=== PATIENT | male | born 1955 | race Caucasian/White ===

== ENCOUNTER 2019-10-15 08:19 | Day surgery (SDC) | payer MEDICARE, OTHER ==
[2019-10-12 14:54] VITALS: BMI 21.9
[~2019-10-15 08:19] MED LIST: ACETAMINOPHEN TAB 500 MG TAB PO ONE; BACITRACIN 500 UNIT/GM OINT 28.4 GM TUBE TOPICAL ONE; DEXAMETHASONE SOD PHOSPHATE 10 MG/ML 1 ML VIAL IV ONE; DEXAMETHASONE SOD PHOSPHATE 4 MG/ML 1 ML VIAL IV ONE; EPINEPHrine 1 MG/ML (MDV) 30 ML VIAL IRRIGATION ONE; FAMOTIDINE 20 MG/2 ML VIAL IV ONE; FLUORESCEIN STRIPS 1 MG STRIP MISCELLANE ONE; LACTATED RINGERS 1,000 ML IV SCH; LIDOCAINE 1% 20 ML VIAL (10MG/ML) FOR IV START INTRADERMA PRN; LIDOCAINE 1%-EPI 1:100,000 20 ML VIAL SQ ONE; MELOXICAM 7.5 MG TAB PO ONE; ONDANSETRON 4 MG/2 ML VIAL IVP ONE
[2019-10-15] MEDS: OXYMETAZOLINE 0.05% NASL SPRAY 1 SPRAY BOTTLE NASAL ONE ×4 (09:17→09:40)
[2019-10-15] MEDS: ONDANSETRON 4 MG/2 ML VIAL IVP ONE ×2 (09:34→11:58)
[2019-10-15] MEDS ORDERED: MIDAZOLAM 2 MG/2 ML VIAL ONE (10:24)
[2019-10-15] MEDS ORDERED: PHENYLEPHRINE-0.9% NACL SYG 1 MG/10 ML SYRINGE ONE (10:24)
[2019-10-15] MEDS ORDERED: PROPOFOL 10 MG/ML 20 ML VIAL IV ONE (10:24)
[2019-10-15] MEDS ORDERED: fentaNYL (PF) 50 MCG/ML 2 ML AMP ONE (10:24)
[2019-10-15] MEDS ORDERED: SUCCINYLCHOLINE CHLORIDE 100 MG/5 ML SYR IV ONE (10:24)
[2019-10-15] MEDS ORDERED: LIDOCAINE 1% INJ 10MG/ML (20 ML MDV) ONE (10:24)
[2019-10-15] MEDS ORDERED: EPINEPHrine 1 MG/ML (MDV) 30 ML VIAL IRRIGATION ONE (10:46)
[2019-10-15] MEDS ORDERED: FLUORESCEIN STRIPS 1 MG STRIP MISCELLANE ONE (10:46)
[2019-10-15] MEDS ORDERED: LIDOCAINE 1%-EPI 1:100,000 20 ML VIAL SQ ONE (10:46)
[2019-10-15] MEDS ORDERED: BUPIVACAINE (PF) 0.25% 30 ML VIAL SQ ONE (10:46)
[2019-10-15 11:42] VITALS: TEMP 97.1
--- NOTE | 2019-10-15 11:45 | P.OP ---
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 sinuses Deviated nasal septum Bilateral hypertrophy of the inferior nasal turbinates Lysis of intranasal synechiae Postoperative Diagnosis: Same Procedure(s) Performed: Bilateral functional endoscopic sinus surgery with polypectomy and placement of propel Septoplasty Bilateral submucosal resection of the inferior nasal turbinates with outfracturing compression Anesthesia: STEVIE Surgeon: Ketan Bourgeois Estimated Blood Loss (ml): 20 Pathology: other (Sinonasal) Condition: stable Disposition: PACU Indications for Procedure: This patient is a 64-year-old white male who presented to the office with recurrent polyposis and chronic sinusitis. CAT scan evaluation shows blockage of the frontal ethmoid and maxillary sinuses from polyps. Patient also had polyps in the maxillary sinuses ethmoid sinuses and frontal sinuses. It appeared that the sphenoid sinuses were spared. Patient had previous nasal surgery by Dr. Bynum and ALLERGY shots by Dr. Foley. The patient had his middle turbinate removed and unfortunately has developed significant polyposis with blockage and obstruction. The patient has failed medical therapy and has been on antibiotics and antihistamines Flonase nasal spray and [id number] medications with no improvement. He has clear blockage of the sinuses with his nasal polyps and we need to clear his obstruction for better sinus function. He also noticed anosmia. Operative Findings: Patient had widespread sinonasal disease with polyposis and blockage bilaterally with absent middle turbinates deviated septum and large obstructive inferior turbinates. Diseased tissue was seen throughout the frontal ethmoid and maxillary sinuses. The sphenoid sinuses appear to be spared. Description of Procedure: This patient was taken to the operative room and placed in the supine position. A general inhalation anesthetic was administered to the patient by the department of anesthesia with a functioning IV line in place. The patient was monitored throughout the entire case by the department of anesthesia. The eyes were taped shut for protection. The patient was placed in a slight reverse Trendelenburg position. The patient had previously utilize Afrin nasal spray preoperatively. The nose was evaluated and the septum lateral nasal wall and inferior turbinates were injected with lidocaine 1% with epinephrine 1 100,000 bilaterally. Approximately 10 minutes were allowed wait for full vasoconstrictive effects to take place. At this point a caudal incision was made over the caudal portion of the left septum down to the mucoperichondrium. A mucoperichondrial flap was elevated on the left side and dissection was carried with use of tunnels posteriorly. We then made a crossover incision through the cartilage to the contralateral side and for the mucoperichondrial flap development was performed to the extent of visualization on the contralateral side. After the cartilage was freed with use of several crosshatching incisions and removal of some redundant strips of septal cartilage, the septum was straightened and placed back in the midline. The septum was sutured fixated to the ovarian groove. Excellent straightening occurred and the septum was visibly straight. Incision was closed with a 40 rapid Vicryl. We utilized a running nonlocking fashion for closure of the incision. A quilting stitch was used to reapproximate the septal flaps with use of a 40 rapid Vicryl. We then entered the nose with a 0 and 30 Ramirez an endoscope. Previous to this we did inject the lateral nasal wall and middle turbinate and uncinate process with lidocaine 1% with epinephrine 1 100,000. Approximately 10 minutes were allowed wait for full vasoconstrictive effects to take place. With use of a microdebrider and a pediatric backbiter, we took down the uncinate process bilaterally. The bilateral middle turbinates were absent from previous surgery. Intranasally there are bilateral polyps which were removed with a microdebrider. The patient had large amount of synechiae throughout the ethmoid maxillary and frontal sinuses. We took down all the synechiae from his previous surgery. There was polyps noted throughout all sinuses other than the sphenoid. We then opened the maxillary sinuses bilaterally. We utilized a microdebrider for this and entered the maxillary sinuses and removed diseased tissue. This was done bilaterally. After the maxillary sinuses were opened and the diseased tissue was removed we entered the ethmoid bulla and with use of a microdebrider and up-biting Melvina, we followed the fovea frontalis through the basal lamella and into the posterior ethmoid air cells and did a total ethmoi dectomy. We removed the anterior ethmoid air cells with use of a microdebrider and up-biting boss. After all the anterior ethmoid air cells were removed we did the same in the posterior ethmoid. A total ethmoidectomy was completed in that fashion with removal of all the anterior and posterior ethmoid air cells and diseased tissue. We open the frontal sinuses and removed sinus tissue that was diseased. We did utilized the balloon for some opening but we had to remove diseased tissue and polyps from the opening and diseased tissue from this frontal sinuses bilaterally with use of endoscope. We explored the frontal sinuses bilaterally. To summarize all sinuses were open all sinuses were explored and we remove diseased tissue from the sphenoid maxillary and frontal sinuses. Ethmoid sinuses were opened totally. Xerogel was inserted and minimal bleeding was encountered. We reinspected the skull base there is no signs of any orbital penetration or signs of any intracranial penetration. Bilateral propel many and propel's were placed. The sugical site was reinspected after the xerogel was placed and no bleeding was seen. I did place 2 Merocel sponge packs bilaterally which will be removed this evening or tomorrow morning Attention was then paid to the inferior turbinates. The bilateral inferior turbinates were hypertrophic and obstructive. We entered the anterior portion of the inferior turbinates with use of a microdebrider. We remove bone and submucosal elements with use of a microdebrider bilaterally. The inferior turbinates underwent a submucosal resection with removal of submucosal tissue and bone. We obtained a much better and normal in size for breathing. The inferior turbinates were then outfractured and compressed with a Boyes nasal elevator. Excellent airway was obtained and was symmetric bilaterally. No bleeding was encountered.
[2019-10-15 11:49] VITALS: RESP 16
[2019-10-15] MEDS: HYDROmorphone 0.5 MG/0.5 ML SYRINGE IVP PRN ×2 (11:58→12:06)
[2019-10-15] MEDS ORDERED: hydrALAZINE HCL 20 MG/ML 1 ML VIAL IVP ONE (12:06)
[2019-10-15] MEDS ORDERED: amLODIPine 10 MG TAB PO STA (12:16)
[2019-10-15] MEDS ORDERED: MORPHINE SULFATE 4 MG/ML SYRINGE IVP ONE (12:33)
[2019-10-15 13:48] VITALS: BP 144/77; PULSE 72
== END 2019-10-15 13:49 | disposition home or self-care (01) ==
LOC: OR 08:19
PROVIDERS: ATTEND Otolaryngology
DX: J32.4 Chronic pansinusitis (principal); J34.2 Deviated nasal septum; J34.3 Hypertrophy of nasal turbinates; J33.9 Nasal polyp, unspecified; J34.89 Other specified disorders of nose and nasal sinuses; K21.9 Gastro-esophageal reflux disease without esophagitis; Z87.891 Personal history of nicotine dependence; Z80.3 Family history of malignant neoplasm of breast; I10 Essential (primary) hypertension; N40.0 Benign prostatic hyperplasia without lower urinary tract symptoms; Z79.52 Long term (current) use of systemic steroids; Z79.899 Other long term (current) drug therapy; Z91.010 Allergy to peanuts; Z91.013 Allergy to seafood; Z91.048 Other nonmedicinal substance allergy status
CPT/HCPCS: 30520; 31267; 31253; 30140; 88305; 84132; C2625 ×2; C1726; J0171; J2250; J2270; J0360; J2405; J0690; J2001; J3010; J2370; J0330; J2704; J1170; 93005

== ENCOUNTER → 2020-03-29 | Outpatient (CLI) | payer OTHER | END | disposition home or self-care (01) | LOC: LABWHC1 10:26 | PROVIDERS: ATTEND Family Medicine | DX: Z03.818 Encounter for observation for suspected exposure to other biological agents ruled out (principal) | CPT/HCPCS: U0003; C9803 ==

== ENCOUNTER 2020-05-26 10:38 | Day surgery (SDC) | payer OTHER, MEDICARE ==
[2020-05-25 13:22] VITALS: BMI 21.9
[~2020-05-26 10:38] MED LIST changes: -ACETAMINOPHEN TAB 500 MG TAB PO ONE; -BACITRACIN 500 UNIT/GM OINT 28.4 GM TUBE TOPICAL ONE; -DEXAMETHASONE SOD PHOSPHATE 10 MG/ML 1 ML VIAL IV ONE; -DEXAMETHASONE SOD PHOSPHATE 4 MG/ML 1 ML VIAL IV ONE; -EPINEPHrine 1 MG/ML (MDV) 30 ML VIAL IRRIGATION ONE; -FAMOTIDINE 20 MG/2 ML VIAL IV ONE; -FLUORESCEIN STRIPS 1 MG STRIP MISCELLANE ONE; +LIDOCAINE 1% (10MG/ML) FOR IV START INTRADERMA PRN; -LIDOCAINE 1% 20 ML VIAL (10MG/ML) FOR IV START INTRADERMA PRN; -LIDOCAINE 1%-EPI 1:100,000 20 ML VIAL SQ ONE; -MELOXICAM 7.5 MG TAB PO ONE; -ONDANSETRON 4 MG/2 ML VIAL IVP ONE
[2020-05-26 10:55] VITALS: TEMP 98
[2020-05-26] MEDS ORDERED: PROPOFOL 10 MG/ML 20 ML VIAL IV ONE (12:24)
[2020-05-26] MEDS ORDERED: LIDOCAINE 1% INJ 10MG/ML (20 ML MDV) ONE (12:24)
[2020-05-26] MEDS ORDERED: LACTATED RINGERS 1,000 ML IV ONE (12:25)
--- NOTE | 2020-05-26 12:52 | P.PCN ---
Date of Procedure: 05/26/20 Description of Procedure: BRIEF HISTORY: Patient is a 64-year-old male presenting for outpatient colonoscopy for screening for malignant neoplasm of the colon. The patient reports a prior history of chronic. Diverticulitis with perforation requiring partial colon resection. He reports a history of colon polyps in the past. He believes his last colonoscopy was 5 years ago. PROCEDURE PERFORMED: Colonoscopy with polypectomy. PREOPERATIVE DIAGNOSIS: Screening for malignant neoplasm of the colon, patient reports last colonoscopy 5 years ago, patient reports personal history of colon polyps. ESTIMATED BLOOD LOSS: Minimal. IV sedation per Anesthesia. PROCEDURE: After informed consent was obtained, the patient, was brought into the endoscopy unit. IV sedation was administered by Anesthesia under continuous monitoring. Digital rectal examination was normal. Initially the Olympus CF-190 flexible video colonoscope was then inserted in the rectum, gradually advanced into the cecum without any difficulty. Careful examination was performed as the scope was gradually being withdrawn. Ileocecal valve and the appendiceal orifice were visualized and appeared normal. Prep was excellent. Mucosa of the cecum, ascending colon, transverse colon, descending colon, and rectum appeared normal. Evidence of prior partial colectomy/sigmoidectomy. Patient had numerous small and large diverticula throughout the colon. 2 diminutive polyps removed with cold forcep polypectomy measuring 2 mm in size from the cecum. Retroflexion was performed in the rectum and no lesions were seen, low-grade hemorrhoids. The patient tolerated the procedure well. IMPRESSION: 2 diminutive cecal polyps removed with cold forcep polypectomy. Moderate pandiverticulosis. Prior partial colectomy with normal anastomotic site. RECOMMENDATIONS: Findings of this examination were discussed with the patient in his . Okay to resume diet. Okay to resume medications. Await pathology from polypectomy. Would recommend repeat colonoscopy in 7 years for colon polyps.
[2020-05-26 12:55] VITALS: PULSE 59
[2020-05-26 13:10] VITALS: BP 131/78; RESP 20
== END 2020-05-26 13:38 | disposition home or self-care (01) ==
LOC: ORWHC2ENDO 10:38
PROVIDERS: ATTEND Internal Medicine
DX: Z12.11 Encounter for screening for malignant neoplasm of colon (principal); D12.0 Benign neoplasm of cecum; K57.30 Diverticulosis of large intestine without perforation or abscess without bleeding; Z86.010 Personal history of colon polyps; I10 Essential (primary) hypertension; N40.0 Benign prostatic hyperplasia without lower urinary tract symptoms; Z79.899 Other long term (current) drug therapy; Z87.891 Personal history of nicotine dependence; Z90.49 Acquired absence of other specified parts of digestive tract; Z98.890 Other specified postprocedural states
CPT/HCPCS: 88305; 45380; J2001; J2704

== ENCOUNTER → 2020-09-13 | Outpatient (CLI) | payer OTHER, MEDICARE | END | disposition home or self-care (01) | LOC: LABWHC1 09:15 | PROVIDERS: ATTEND Family Medicine | DX: Z20.828 Contact with and (suspected) exposure to other viral communicable diseases (principal) | CPT/HCPCS: U0003; C9803 ==

== ENCOUNTER → 2020-12-26 | Outpatient (CLI) | payer OTHER, MEDICARE ==
[2020-12-26 09:03] LABS: African American GFR (CKD) >90 (>60 ml/min/1.73 sqM); Blood Urea Nitrogen 17 mg/dL (9-20); Non-African American GFR(CKD) 83 (>60 ml/min/1.73 sqM)
--- NOTE | 2020-12-26 10:45 | CT ---
EXAMINATION TYPE: CT urogram wo/w con DATE OF EXAM: 12/26/2020 COMPARISON: None HISTORY: 65-year-old male Hematuria, abnormal urine cytology TECHNIQUE: Contiguous axial scanning of the abdomen and pelvis performed without and with IV Contrast , patient injected with 100 ml mL of Isovue 300. Delayed images through the kidneys and bladder were obtained. Coronal/sagittal reconstructions performed. 3-D reconstructions generated on a dedicated in dependent workstation. CT DLP: 2588 mGycm Automated exposure control for dose reduction was used. FINDINGS: Heart normal size without pericardial effusion. Mild dependent atelectasis in the visualized lower renuka ngs. Small hiatal hernia. No focal liver lesion or biliary ductal dilatation. Portal venous system is patent. Gallbladder, adrenal glands, spleen, and pancreas within normal limits. Kidney show no hydronephrosis. Symmetric uptake and excretion of contrast from both kidneys. There is an ovoid 2.5 cm cortical lesion medial mid pole left kidney with density characteristics is compatible with a benign cyst. No suspicious renal lesion. No abnormal filling defects seen within the renal collecting system. No suspicious filling defect see n along the course of either ureter. No dilated small bowel, free fluid, or free air. No mesenteric or retroperitoneal lymphadenopathy. Normal appendix. Mild to moderate stool burden. Left hemicolonic diverticulosis, greatest in the prox imal to mid sigmoid colon. No pericolonic inflammatory change. Mild circumferential bladder wall thickening with some eccentric plaque like thickening along the lef t lateral bladder wall measuring 1.9 x 0.6 cm, referred to axial series 9 image 22. An adjacent 7 mm lymph node is present along the anterior left side of the pelvis. Marked prostatomegaly of 6.8 cm. Central prostatic calcifications. No abnormal fluid collection in th e pelvis are any additional pelvic lymphadenopathy seen. Bones: Mild degenerative change of the hips. Facet arthropathy lower lumbar spine. Trace grade 1 retr olisthesis L3-L4 and L4-L5. Moderate degenerative disc disease lower lumbar spine. IMPRESSION: 1. A BENIGN 2.5 CM LEFT RENAL CYST. NO SUSPICIOUS RENAL MASS. NO SUSPICIOUS FILLING DEFECTS WITHIN TH E RENAL COLLECTING SYSTEMS OR ALONG THE COURSE OF EITHER URETER. 2. CIRCUMFERENTIAL BLADDER WALL THICKENING LIKELY CHRONIC BLADDER WALL HYPERTROPHY FROM BLADDER OUTLE T OBSTRUCTION. THERE IS MARKED PROSTATOMEGALY OF 6.8 CM. CORRELATE WITH PSA VALUES AND PATIENT'S SYMP TOMS. 3. HOWEVER, THERE IS ECCENTRIC PLAQUE-LIKE THICKENING ALONG THE LEFT LATERAL BLADDER WALL MEASURING 1 .9 X 0.6 CM. DIRECT VISUALIZATION TO EXCLUDE UROTHELIAL LESION. 4. NONSPECIFIC ADJACENT 7 MM LYMPH NODE IN THE ANTERIOR LEFT SIDE OF THE PELVIS CAN BE REASSESSED AT FOLLOW-UP. 5. SMALL HIATAL HERNIA AND LEFT-SIDED COLONIC DIVERTICULOSIS.
== END | disposition home or self-care (01) ==
LOC: RADCTMAIN 08:18
PROVIDERS: ATTEND Urology
DX: N28.1 Cyst of kidney, acquired (principal); N40.0 Benign prostatic hyperplasia without lower urinary tract symptoms; K44.9 Diaphragmatic hernia without obstruction or gangrene; K57.30 Diverticulosis of large intestine without perforation or abscess without bleeding
CPT/HCPCS: 82565; 84520; 74178; 36415; 74400; Q9967

== ENCOUNTER → 2021-05-29 | Outpatient (CLI) | payer OTHER, MEDICARE ==
[2021-05-29 14:57] LABS: African American GFR (CKD) >90 (>60 ml/min/1.73 sqM); Blood Urea Nitrogen 16 mg/dL (9-20); Non-African American GFR(CKD) 89 (>60 ml/min/1.73 sqM)
--- NOTE | 2021-05-29 16:09 | CT ---
EXAMINATION TYPE: CT abdomen pelvis w con DATE OF EXAM: 05/29/2021 COMPARISON: CT urogram December 26, 2020 HISTORY: Localized enlarged lymph node CT DLP: 674.60 mGycm, Automated Exposure Control for Dose Reduction was Utilized. CONTRAST: CT scan of the abdomen and pelvis is performed without oral but with IV Contrast, patient injected wi th 100 ml mL of Isovue 300. FINDINGS: LUNG BASES: Mild posterior bibasilar linear atelectasis and/or scarring is redemonstrated. LIVER/GB: No significant abnormality is appreciated. PANCREAS: No significant abnormality is seen. SPLEEN: No significant abnormality is seen. ADRENALS: No significant abnormality is seen. KIDNEYS: Stable 2.7 cm thin-walled cyst medially in the left kidney midpole level image 32 series 5. BOWEL: Stable small sized hiatal hernia. No suspicious small or large bowel dilatation. Prominent div erticulosis left and sigmoid colon again seen PROSTATE/SEMINAL VESICLES: Enlarged prostate consistent with BPH redemonstrated. LYMPH NODES: There is a 8mm oval hyperdense lesion adjacent to bladder X image 69 unchanged from prio r possible prominent lymph node. No new greater than 1 cm lymph nodes clearly identified. OSSEOUS STRUCTURES: Slight grade 1 retrolisthesis L3 on L4. Mild disc space narrowing L4-L5 and L5-S1 levels. Facet Arthropathy lower lumbar spine. OTHER: Mild calcified plaque of the aorta and branch vessels. IMPRESSION: No obvious new mass or adenopathy. Stable is nonspecific 8 mm lesion adjacent to left bl adder possible prominent lymph node.
== END | disposition home or self-care (01) ==
LOC: RADCTMAIN 14:23
PROVIDERS: ATTEND Urology
DX: K44.9 Diaphragmatic hernia without obstruction or gangrene (principal); N40.0 Benign prostatic hyperplasia without lower urinary tract symptoms
CPT/HCPCS: 82565; 84520; 74177; 36415; Q9967

== ENCOUNTER 2021-08-16 21:28 | Inpatient (IN) | payer OTHER, MEDICARE ==
[2021-08-17] MEDS ORDERED: SODIUM CHLORIDE 0.9% 500 ML 500 ML IV STA (00:44)
[2021-08-17] MEDS ORDERED: ONDANSETRON 4 MG/2 ML VIAL IVP STA (00:44)
[2021-08-17] MEDS ORDERED: MORPHINE SULFATE 2 MG/ML SYRINGE IVP STA (00:44)
[2021-08-17 01:21] LABS: Basophils % (A) 0 %; Eosinophils % (A) 0 %; HCT 49.2 % (39.0-53.0); Lymphocytes # (A) 0.7 k/uL (1.0-4.8); Lymphocytes % (A) 6 %; MCHC 34.6 g/dL (31.0-37.0); MCV 95.2 fL (80.0-100.0); Mean Platelet Volume 7.2; Monocytes # (A) 0.4 k/uL (0-1.0); Monocytes % (A) 4 %; Neutrophils # (A) 9.9 k/uL (1.3-7.7); Neutrophils % (A) 88 %; Platelet Count 259 k/uL (150-450); RBC 5.17 m/uL (4.30-5.90); RDW 12.8 % (11.5-15.5); WBC 11.2 k/uL (3.8-10.6)
[2021-08-17 01:31] LABS: Chloride 104 mmol/L (98-107)
[2021-08-17 01:34] LABS: ALT 21 U/L (4-49); AST 27 U/L (17-59); African American GFR (CKD) >90 (>60 ml/min/1.73 sqM); Albumin 4.4 g/dL (3.5-5.0); Alkaline Phosphatase 55 U/L (38-126); Amylase 57 U/L (30-110); Anion Gap 8 mmol/L; Blood Urea Nitrogen 17 mg/dL (9-20); Calcium 9.6 mg/dL (8.4-10.2); Carbon Dioxide 26 mmol/L (22-30); Glucose 131 mg/dL (74-99); Lipase 84 U/L (23-300); Non-African American GFR(CKD) 89 (>60 ml/min/1.73 sqM); Potassium 4.1 mmol/L (3.5-5.1); Sodium 138 mmol/L (137-145); Total Bilirubin 0.8 mg/dL (0.2-1.3); Total Protein 7.9 g/dL (6.3-8.2)
--- NOTE | 2021-08-17 01:37 | ED ---
Abdominal Pain HPI - General Chief Complaint: Abdominal Pain Stated Complaint: Stomach Cramps Time Seen by Provider: 08/17/21 00:35 Source: patient, RN notes reviewed Mode of arrival: ambulatory Limitations: no limitations - History of Present Illness Initial Comments: Patient is a 65-year-old male with history of hypertension, presenting to emergency Department with complaints of right lower quadrant abdominal pain that been increasing throughout today. States he noticed it first about noon today after he ate. The pain has been steadily increasing, he currently rates the pain at 8/10. He states he does have history of diverticulitis with bowel resection. He had his last colonoscopy about a year and a half ago, no abnormal findings then. He denies any fevers or chills, no chest pain or shortness of breath. He does admit to some mild nausea, some loose stools this morning but no other diarrhea. Patient denies any other abdominal surgeries. Patient has no further complaints. His vital signs are stable upon arrival. - Related Data Home Medications Medication Instructions Recorded Confirmed Tamsulosin [Flomax] 0.4 mg PO DAILY 10/12/19 08/17/21 Ascorbic Acid [Vitamin C] 1,000 mg PO DAILY 08/17/21 08/17/21 L.acidoph,Paracasei, B.lactis 1 cap PO DAILY 08/17/21 08/17/21 [Probiotic] Losartan [Cozaar] 25 mg PO DAILY 08/17/21 08/17/21 Chester-3 Fatty Acids/Fish Oil [Fish 1 cap PO DAILY 08/17/21 08/17/21 Oil 1,000 mg Softgel] Allergies Allergy/AdvReac Type Severity Reaction Status Date / Time grass pollen Allergy Dyspnea Verified 08/17/21 07:24 mold Allergy Dyspnea Verified 08/17/21 07:24 peanut Allergy Dyspnea Verified 08/17/21 07:24 pollen extracts Allergy Dyspnea Verified 08/17/21 07:24 shellfish derived [Shellfish] Allergy Dyspnea Verified 08/17/21 07:24 dust Allergy Dyspnea Uncoded 08/17/21 07:24 Review of Systems ROS Statement: Those systems with pertinent positive or pertinent negative responses have been documented in the HPI. ROS Other: All systems not noted in ROS Statement are negative. Past Medical History Past Medical History: Hypertension, Prostate Disorder Additional Past Medical History / Comment(s): states nasal polyp, diverticulitis History of Any Multi-Drug Resistant Organisms: None Reported Past Surgical History: Bowel Resection Additional Past Surgical History / Comment(s): previous nasal polyps removed, Jaw sx with pin, colon resection d/t diverticulitis Past Anesthesia/Blood Transfusion Reactions: No Reported Reaction Past Psychological History: No Psychological Hx Reported Smoking Status: Former smoker Past Alcohol Use History: None Reported Past Drug Use History: None Reported - Past Family History Father Family Medical History: No Reported History Additional Family Medical History / Comment(s): Father lived to be 90yrs. Mother Family Medical History: Hypertension Additional Family Medical History / Comment(s): Mother lived to be 76yrs old. General Exam - General Exam Comments Initial Comments: GENERAL: Patient is well-developed and well-nourished. Patient is nontoxic and in no acute distress. HEAD: Atraumatic, normocephalic. EYES: Pupils equal round and reactive to light, extraocular movements intact, sclera anicteric, conjunctiva are normal. Eyelids were unremarkable. ENT: Moist mucous membranes. NECK: Normal range of motion, supple without lymphadenopathy or JVD. LUNGS: Unlabored respirations. Breath sounds clear to auscultation bilaterally and equal. No wheezes rales or rhonchi. HEART: Regular rate and rhythm without murmurs, rubs or gallops. ABDOMEN: Soft, tender to palpation of the right lower quadrant, right side of the abdomen, normoactive bowel sounds. No masses appreciated. : Deferred MUSCULOSKELETAL: Normal extremities with adequate strength and normal range of motion, no pitting or edema. No clubbing or cyanosis. NEUROLOGICAL: Patient is alert and oriented x 3. Symmetrical smile. Normal speech, normal gait. PSYCH: Normal mood, normal affect. SKIN: Warm, Dry, normal turgor, no rashes or lesions noted. Limitations: no limitations Course Vital Signs 08/16/21 08/17/21 08/17/21 22:22 01:25 03:14 Temperature 98.8 F Pulse Rate 74 76 79 Pulse Rate [ Pulse Oximetery ] Respiratory 18 20 20 Rate Blood Pressure 139/83 142/84 146/86 Blood Pressure [Right Arm] O2 Sat by Pulse 97 96 96 Oximetry 08/17/21 08/17/21 08/17/21 06:39 12:40 14:00 Temperature 98.0 F Pulse Rate 77 81 Pulse Rate [ 75 Pulse Oximetery ] Respiratory 18 18 18 Rate Blood Pressure 141/86 149/97 Blood Pressure 139/82 [Right Arm] O2 Sat by Pulse 98 97 96 Oximetry Medical Decision Making - Medical Decision Making Patient is a 65-year-old male with history of hypertension, presenting with right lower quadrant pain started earlier today. Steadily been increasing throughout today. Does have history of diverticulitis with bowel resection, no other abdominal surgeries. His vitals are stable. Labs are showing a slight white count 11.2, rest of labs are unremarkable, urine shows evidence of in fection. CT the abdomen and pelvis shows a mechanical small bowel obstruction with transition point in the anterior right mid abdomen. Patient was started on some fluids, given morphine and Zofran, has been resting comfortably. His vitals remained stable. Patient will be admitted for small bowel obstruction. Patient will be admitted under Dr. Marquez who is covering for Dr. Chicas, with surgery on consult. Case discussed with Dr. Rubin. - Lab Data Result diagrams: 08/17/21 00:47 08/17/21 00:47 Lab Results 08/17/21 08/17/21 08/17/21 Range/Units 00:47 00:47 00:47 WBC 11.2 H (3.8-10.6) k/uL RBC 5.17 (4.30-5.90) m/uL Hgb 17.0 (13.0-17.5) gm/dL Hct 49.2 (39.0-53.0) % MCV 95.2 (80.0-100.0) fL MCH 33.0 (25.0-35.0) pg MCHC 34.6 (31.0-37.0) g/dL RDW 12.8 (11.5-15.5) % Plt Count 259 (150-450) k/uL MPV 7.2 Neutrophils % 88 % Lymphocytes % 6 % Monocytes % 4 % Eosinophils % 0 % Basophils % 0 % Neutrophils # 9.9 H (1.3-7.7) k/uL Lymphocytes # 0.7 L (1.0-4.8) k/uL Monocytes # 0.4 (0-1.0) k/uL Eosinophils # 0.0 (0-0.7) k/uL Basophils # 0.0 (0-0.2) k/uL Sodium 138 (137-145) mmol/L Potassium 4.1 (3.5-5.1) mmol/L Chloride 104 (98-107) mmol/L Carbon Dioxide 26 (22-30) mmol/L Anion Gap 8 mmol/L BUN 17 (9-20) mg/dL Creatinine 0.88 (0.66-1.25) mg/dL Est GFR (CKD-EPI)AfAm >90 (>60 ml/min/1.73 sqM) Est GFR (CKD-EPI)NonAf 89 (>60 ml/min/1.73 sqM) Glucose 131 H (74-99) mg/dL Plasma Lactic Acid Jann (0.7-2.0) mmol/L Calcium 9.6 (8.4-10.2) mg/dL Total Bilirubin 0.8 (0.2-1.3) mg/dL AST 27 (17-59) U/L ALT 21 (4-49) U/L Alkaline Phosphatase 55 (38-126) U/L Total Protein 7.9 (6.3-8.2) g/dL Albumin 4.4 (3.5-5.0) g/dL Amylase 57 (30-110) U/L Lipase 84 (23-300) U/L Urine Color Yellow Urine Appearance Clear (Clear) Urine pH 7.0 (5.0-8.0) Ur Specific [place] 1.050 H (1.001-1.035) Urine Protein Negative (Negative) Urine Glucose (UA) Negative (Negative) Urine Ketones 1+ H (Negative) Urine Blood Negative (Negative) Urine Nitrite Negative (Negative) Urine Bilirubin Negative (Negative) Urine Urobilinogen <2.0 (<2.0) mg/dL Ur Leukocyte Esterase Negative (Negative) 08/17/21 Range/Units 00:47 WBC (3.8-10.6) k/uL RBC (4.30-5.90) m/uL Hgb (13.0-17.5) gm/dL Hct (39.0-53.0) % MCV (80.0-100.0) fL MCH (25.0-35.0) pg MCHC (31.0-37.0) g/dL RDW (11.5-15.5) % Plt Count (150-450) k/uL MPV Neutrophils % % Lymphocytes % % Monocytes % % Eosinophils % % Basophils % % Neutrophils # (1.3-7.7) k/uL Lymphocytes # (1.0-4.8) k/uL Monocytes # (0-1.0) k/uL Eosinophils # (0-0.7) k/uL Basophils # (0-0.2) k/uL Sodium (137-145) mmol/L Potassium (3.5-5.1) mmol/L Chloride (98-107) mmol/L Carbon Dioxide (22-30) mmol/L Anion Gap mmol/L BUN (9-20) mg/dL Creatinine (0.66-1.25) mg/dL Est GFR (CKD-EPI)AfAm (>60 ml/min/1.73 sqM) Est GFR (CKD-EPI)NonAf (>60 ml/min/1.73 sqM) Glucose (74-99) mg/dL Plasma Lactic Acid Jann 1.5 (0.7-2.0) mmol/L Calcium (8.4-10.2) mg/dL Total Bilirubin (0.2-1.3) mg/dL AST (17-59) U/L ALT (4-49) U/L Alkaline Phosphatase (38-126) U/L Total Protein (6.3-8.2) g/dL Albumin (3.5-5.0) g/dL Amylase (30-110) U/L Lipase (23-300) U/L Urine Color Urine Appearance (Clear) Urine pH (5.0-8.0) Ur Specific [place] (1.001-1.035) Urine Protein (Negative) Urine Glucose (UA) (Negative) Urine Ketones (Negative) Urine Blood (Negative) Urine Nitrite (Negative) Urine Bilirubin (Negative) Urine Urobilinogen (<2.0) mg/dL Ur Leukocyte Esterase (Negative) Disposition Clinical Impression: Small bowel obstruction, Abdominal pain Disposition: ADMITTED IP TO THIS [facility] Condition: Stable Decision Date: 08/17/21 Decision Time: 03:31
[2021-08-17 02:31] LABS: Appearance,Urine Clear (Clear); Bilirubin,Urine Negative (Negative); Blood,Urine Negative (Negative); Color,Urine Yellow; Glucose,Urine (UA) Negative (Negative); Ketones,Urine 1+ (Negative); Leukocyte Esterase,Urine Negative (Negative); Nitrite,Urine Negative (Negative); Protein,Urine Negative (Negative); Urobilinogen,Urine <2.0 mg/dL (<2.0)
--- NOTE | 2021-08-17 02:49 | CT ---
EXAMINATION TYPE: CT abdomen pelvis w con DATE OF EXAM: 08/17/2021 COMPARISON: 05/29/2021 HISTORY: RLQ pain with nausea CT DLP: 973.3 mGycm Automated exposure control for dose reduction was used. CONTRAST: Performed with IV Contrast, patient injected with 100 mL of Isovue 300. There is mild subsegmental atelectasis at the lung bases. Heart size is normal. There is no pericardi al effusion. There is some fluid in the distal esophagus. There is fluid-filled distended stomach. Li zahira and spleen are intact. Gallbladder is intact. The bile ducts are not dilated. There is no evidenc e of pancreatic mass. There is no adrenal mass. Kidneys show satisfactory contrast opacification. There is no hydronephrosi s. There is 3 cm cortical cyst medial left kidney. There is no retroperitoneal adenopathy. Appendix i s medial and appears normal. Bladder distends smoothly. There is enlarged prostate that measures 6.5 cm. There is no inguinal hernia. There are multiple sigmoid diverticula. There is no diverticulitis. There are also diverticula in the right colon and transverse colon. There is dilated loops of small bowel in the mid abdomen. These measure up to 3.4 cm. The terminal il eum is not dilated. There is some fecal material in the small bowel. There is some wall thickening an d luminal narrowing of the small bowel in the right mid abdomen. There appears to be a stricture and this is the transition point. The lumbar vertebra have normal alignment. There is no compression fracture. Posterior elements are i ntact. Bony pelvis is intact. Hip joints are intact. IMPRESSION: There is mechanical small bowel obstruction. There is transition point in the anterior right mid abdo men with luminal narrowing and wall thickening of the ileum. I would consider possibilities of inflam matory bowel disease and tumor. Follow-up is recommended. Obstruction appears new compared to old exa m. There is colonic diverticulosis without diverticulitis.
[2021-08-17] MEDS ORDERED: MORPHINE SULFATE 4 MG/ML SYRINGE IV PRN (03:28)
[2021-08-17] MEDS ORDERED: NALOXONE 0.4 MG/ML 1 ML VIAL IV PRN (03:28)
[2021-08-17] MEDS ORDERED: ONDANSETRON 4 MG/2 ML VIAL IVP PRN (03:28)
[2021-08-17] MEDS: KETOROLAC 30 MG/ML 1 ML VIAL IVP PRN ×3 (03:37→16:57)
[2021-08-17] MEDS: SODIUM CHLORIDE 0.9% 1,000 ML IV SCH ×2 (03:38→17:02)
--- NOTE | 2021-08-17 12:53 | P.HPIM ---
History of Present Illness Patient is a pleasant 65-year-old male came in with complaints of The right lower quadrant abdominal pain with some nausea. Patient had a CT of the abdomen which showed mechanical small bowel obstruction with in the right midabdomen with luminal narrowing and wall thickening in the ileum. Patient had history of colonic resection in the past for diverticulitis and rupture. Patient denied any fever chills patient does have leukocytosis patient the had a NG tube which came out when I'm evaluating the patient patient had about 200 mL drainage from the NG tube presently on IV fluids. She does have bowel sounds and last bowel m ovement was yesterday REVIEW OF SYSTEMS: CONSTITUTIONAL: No fever, no malaise, no fatigue. HEENT: No recent visual problems or hearing problems. Denied any sore throat. CARDIOVASCULAR: No chest pain, orthopnea, PND, no palpitations, no syncope. PULMONARY: No shortness of breath, no cough, no hemoptysis. GASTROINTESTINAL: As mentioned in HPI NEUROLOGICAL: No headaches, no weakness, no numbness. HEMATOLOGICAL: Denies any bleeding or petechiae. GENITOURINARY: Denies any burning micturition, frequency, or urgency. MUSCULOSKELETAL/RHEUMATOLOGICAL: Denies any joint pain, swelling, or any muscle pain. ENDOCRINE: Denies any polyuria or polydipsia. The rest of the 14-point review of systems is negative. PHYSICAL EXAMINATION: GENERAL: The patient is alert and oriented x3, not in any acute distress. Well developed, well nourished. HEENT: Pupils are round and equally reacting to light. EOMI. No scleral icterus. No conjunctival pallor. Normocephalic, atraumatic. No pharyngeal erythema. No thyromegaly. CARDIOVASCULAR: S1 and S2 present. No murmurs, rubs, or gallops. PULMONARY: Chest is clear to auscultation, no wheezing or crackles. ABDOMEN: Soft, nontender, nondistended, normoactive bowel sounds. No palpable organomegaly. MUSCULOSKELETAL: No joint swelling or deformity. EXTREMITIES: No cyanosis, clubbing, or pedal edema. NEUROLOGICAL: Gross neurological examination did not reveal any focal deficits. SKIN: No rashes. Assessment and plan -Small bowel obstruction: General surgery was consulted patient will be continued on IV fluids I'll leave the decision of reinserting the NG tube to general surgery. IV fluids will be continued at 100 mL per hour -Leukocytosis reactive without any evidence of infection and this is secondary to bowel obstruction -Benign prostatic hypertrophy -Hypertension Patient's medications will be continued whenever he can tolerate by mouth meds for above-mentioned medical problems DVT prophylaxis: Early ambulation Past Medical History Past Medical History: GERD/Reflux, Hypertension, Osteoarthritis (OA), Prostate Disorder Additional Past Medical History / Comment(s): Diverticulitis/bowel resection, benign colon polyp, nasal polyps, BPH, RBBB, arthritis bilateral knees History of Any Multi-Drug Resistant Organisms: None Reported Past Surgical History: Bowel Resection, Orthopedic Surgery Additional Past Surgical History / Comment(s): Colonoscopies, bilateral ESS with nasal polypectomy, jaw pinned. Past Anesthesia/Blood Transfusion Reactions: No Reported Reaction Smoking Status: Former smoker - Past Family History Father Family Medical History: No Reported History Additional Family Medical History / Comment(s): Father lived to be 90yrs. Mother Family Medical History: Hypertension Additional Family Medical History / Comment(s): Mother lived to be 76yrs old. Medications and Allergies Home Medications Medication Instructions Recorded Confirmed Type Tamsulosin [Flomax] 0.4 mg PO DAILY 10/12/19 08/17/21 History Ascorbic Acid [Vitamin C] 1,000 mg PO DAILY 08/17/21 08/17/21 History L.acidoph,Paracasei, B.lactis 1 cap PO DAILY 08/17/21 08/17/21 History [Probiotic] Losartan [Cozaar] 25 mg PO DAILY 08/17/21 08/17/21 History [place]-3 Fatty Acids/Fish Oil [Fish 1 cap PO DAILY 08/17/21 08/17/21 History Oil 1,000 mg Softgel] Allergies Allergy/AdvReac Type Severity Reaction Status Date / Time grass pollen Allergy Dyspnea Verified 08/17/21 07:24 mold Allergy Dyspnea Verified 08/17/21 07:24 peanut Allergy Dyspnea Verified 08/17/21 07:24 pollen extracts Allergy Dyspnea Verified 08/17/21 07:24 shellfish derived [Shellfish] Allergy Dyspnea Verified 08/17/21 07:24 dust Allergy Dyspnea Uncoded 08/17/21 07:24 Physical Exam Vitals: Vital Signs Temp Pulse Resp BP Pulse Ox 08/17/21 12:40 81 18 149/97 97 08/17/21 06:39 77 18 141/86 98 08/17/21 03:14 79 20 146/86 96 08/17/21 01:25 76 20 142/84 96 08/16/21 22:22 98.8 F 74 18 139/83 97 Intake and Output 08/16/21 08/17/21 08/17/21 22:59 06:59 14:59 Other: Weight 74.843 kg 74.843 kg Results CBC & Chem 7: 08/17/21 00:47 08/17/21 00:47 Labs: Abnormal Lab Results - Last 24 Hours (Table) 08/17/21 08/17/21 08/17/21 Range/Units 00:47 00:47 00:47 WBC 11.2 H (3.8-10.6) k/uL Neutrophils # 9.9 H (1.3-7.7) k/uL Lymphocytes # 0.7 L (1.0-4.8) k/uL Glucose 131 H (74-99) mg/dL Ur Specific [place] 1.050 H (1.001-1.035) Urine Ketones 1+ H (Negative) Thrombosis Risk Factor Assmnt - Choose All That Apply Any of the Below Risk Factors Present?: Yes Other Risk Factors: Yes Each Risk Factor Represents 2 Points: Age 61-74 years Other congenital or acquired thrombophilia - If yes, enter type in comment: No Thrombosis Risk Factor Assessment Total Risk Factor Score: 2 Thrombosis Risk Factor Assessment Level: Low Risk
--- NOTE | 2021-08-17 14:33 | P.DS ---
Providers Date of admission: 08/17/21 02:58 Attending physician: Juan Marquez Consults: 08/17/21 03:29 Consult Physician Urgent Consulting Provider: Lee Ann Celaya Consult Reason/Comments: small bowel obstruction Do you want consulting provider notified?: Yes, Notify in am Primary care physician: Jemma Slaughter Hospital Course: Patient is clinically doing well without any NG tube and the patient does have good bowel sounds as long as he can pass gas patient is cleared for discharge from my angina surgery perspective. Patient probably will be discharged later today if he is doing okay. Please refer to my HPI for further details. Patient Condition at Discharge: Stable Plan - Discharge Summary Discharge Rx Participant: No New Discharge Prescriptions: No Action Tamsulosin [Flomax] 0.4 mg PO DAILY [place]-3 Fatty Acids/Fish Oil [Fish Oil 1,000 mg Softgel] 1 cap PO DAILY L.acidoph,Paracasei, B.lactis [Probiotic] 1 cap PO DAILY Ascorbic Acid [Vitamin C] 1,000 mg PO DAILY Losartan [Cozaar] 25 mg PO DAILY Discharge Medication List Tamsulosin [Flomax] 0.4 mg PO DAILY 10/12/19 [History] Ascorbic Acid [Vitamin C] 1,000 mg PO DAILY 08/17/21 [History] L.acidoph,Paracasei, B.lactis [Probiotic] 1 cap PO DAILY 08/17/21 [History] Losartan [Cozaar] 25 mg PO DAILY 08/17/21 [History] [place]-3 Fatty Acids/Fish Oil [Fish Oil 1,000 mg Softgel] 1 cap PO DAILY 08/17/21 [History] Follow up Appointment(s)/Referral(s): Lee Ann Celaya MD [STAFF PHYSICIAN] - 08/22/21 Jemma Slaughter MD [Primary Care Provider] - 3 Days Discharge Disposition: HOME SELF-CARE
--- NOTE | 2021-08-17 14:38 | P.GSCN ---
History of Present Illness Consult date: 08/17/21 History of present illness: CHIEF COMPLAINT: Abdominal pain HISTORY OF PRESENT ILLNESS: This is a 65-year-old male with a prior history of diverticulitis requiring a bowel resection at age 38. He also has history of tubular adenoma colon polyps. And last colonoscopy was in May 2020. Patient complains that he had a sudden onset of right lower abdominal pain that started around noon yesterday. He was having severe nausea. Denies any vomiting. He reports that his abdomen had been distended. Earlier that morning he had had a small bowel movement. He came into the ER for further evaluation. He had a computed tomography scan completed there revealed mechanical small bowel obstruction. Patient had NG tube inserted. Patient reports improvement in his abdominal distention since placement of NG tube. Patient has had flatus. He did accidentally pulled out NG tube. Patient reports that he is feeling better since admission. Denies any fever, chills or sweats. PAST MEDICAL HISTORY: See list. PAST SURGICAL HISTORY: See list. MEDICATIONS: See list. ALLERGIES: See list. SOCIAL HISTORY: No illicit drug use. REVIEW OF SYSTEMS: CONSTITUTIONAL: Denies fever or chills. HEENT: Denies blurred vision, vision changes, or eye pain. Denies hemoptysis ENDOCRINE: Denies heat or cold intolerance. CARDIOVASCULAR: Denies chest pain or pressure. RESPIRATORY: No shortness of breath. GASTROINTESTINAL: Please refer to HPI otherwise unremarkable. NEURO: Denies history of seizures. PSYCH: No depression or suicidal ideation HEMATOLOGIC: Denies bleeding disorders. LYMPHATIC: The patient denies any lumps and bumps around the neck. GENITOURINARY: Denies any blood in urine or increased urinary frequency. MUSCULOSKELETAL: Denies myalgias. Denies joint swelling. Denies decreased range of motion beyond patients baseline. SKIN: Denies pruitis. Denies rash. PHYSICAL EXAM: VITAL SIGNS: Reviewed GENERAL: Well-developed in no acute distress. HEENT: No sclera icterus. Extraocular movements grossly intact. Moist buccal mucosa. Head is atraumatic, normocephalic. Hears conversational speech. No nasal drainage. NECK: Supple without lymphadenopathy. CHEST: Non-labored respirations and equal bilateral excursions. CARDIOVASCULAR: Palpable 2+ radial pulses. ABDOMEN: Soft. Mildly distended. Tenderness with palpation of right side of abdomen. MUSCULOSKELETAL: No clubbing or cyanosis. NEUROLOGIC: No focal or lateralizing signs. Cranial nerves II through XII grossly intact. PSYCH: Appropriate affect. Alert and oriented to person, place and time. SKIN: Well perfused. Good skin turgor. LABORATORY DATA: WBC is 11.2 Hgb 17 platelets 259 Sodium 138 potassium 4.1 BUN 17 creatinine 0.88 Lactic acid 1.5 LFTs normal lipase normal Urinalysis negative for infection IMAGING: Computed tomography scan abdomen and pelvis. There is mechanical small bowel obstruction. There is transition point in the anterior right mid abdomen with luminal narrowing and wall thickening of the ileum. Consider possibilities of inflammatory bowel disease and tumor. Follow-up is recommended. Obstruction appears new compared to old exam. There is colonic diverticulosis without diverticulitis. ASSESSMENT: 1. Mechanical small bowel obstruction possibly secondary to adhesions. There is computed tomography scan evidence that shows the transition point in the anterior right mid abdomen with luminal narrowing and wall thickening of the il eum. Consider possibilities of inflammatory bowel disease and tumor. 2. History of diverticulitis with bowel resection 3. History of tubular adenoma colon polyp 4. Leukocytosis possibly reactive 5. History of hypertension PLAN: -Okay to keep NG tube out -Start clear liquid diet -If patient is unable to tolerate diet NG tube may need to be reinserted. -Patient can be discharged from surgical standpoint if tolerating diet and pain remains controlled. Patient reports his pain has improved. He is having flatus. -Recommend outpatient colonoscopy Thank you for this consultation Physician Gold Leaf Roller note has been reviewed by physician. Signing provider agrees with the documented findings, assessment, and plan of care. Past Medical History Past Medical History: GERD/Reflux, Hypertension, Osteoarthritis (OA), Prostate Disorder Additional Past Medical History / Comment(s): Diverticulitis/bowel resection, benign colon polyp, nasal polyps, BPH, RBBB, arthritis bilateral knees History of Any Multi-Drug Resistant Organisms: None Reported Past Surgical History: Bowel Resection, Orthopedic Surgery Additional Past Surgical History / Comment(s): Colonoscopies, bilateral ESS with nasal polypectomy, jaw pinned. Past Anesthesia/Blood Transfusion Reactions: No Reported Reaction Smoking Status: Former smoker - Past Family History Father Family Medical History: No Reported History Additional Family Medical History / Comment(s): Father lived to be 90yrs. Mother Family Medical History: Hypertension Additional Family Medical History / Comment(s): Mother lived to be 76yrs old. Medications and Allergies Home Medications Medication Instructions Recorded Confirmed Type Tamsulosin [Flomax] 0.4 mg PO DAILY 10/12/19 08/17/21 History Ascorbic Acid [Vitamin C] 1,000 mg PO DAILY 08/17/21 08/17/21 History L.acidoph,Paracasei, B.lactis 1 cap PO DAILY 08/17/21 08/17/21 History [Probiotic] Losartan [Cozaar] 25 mg PO DAILY 08/17/21 08/17/21 History [place]-3 Fatty Acids/Fish Oil [Fish 1 cap PO DAILY 08/17/21 08/17/21 History Oil 1,000 mg Softgel] Allergies Allergy/AdvReac Type Severity Reaction Status Date / Time grass pollen Allergy Dyspnea Verified 08/17/21 07:24 mold Allergy Dyspnea Verified 08/17/21 07:24 peanut Allergy Dyspnea Verified 08/17/21 07:24 pollen extracts Allergy Dyspnea Verified 08/17/21 07:24 shellfish derived [Shellfish] Allergy Dyspnea Verified 08/17/21 07:24 dust Allergy Dyspnea Uncoded 08/17/21 07:24 Surgical - Exam Vital Signs Temp Pulse Resp BP Pulse Ox 98.8 F 74 18 139/83 97 08/16/21 22:22 08/16/21 22:22 08/16/21 22:22 08/16/21 22:22 08/16/21 22:22 Results - Labs 08/17/21 00:47 08/17/21 00:47 Abnormal Lab Results - Last 24 Hours (Table) 08/17/21 08/17/21 08/17/21 Range/Units 00:47 00:47 00:47 WBC 11.2 H (3.8-10.6) k/uL Neutrophils # 9.9 H (1.3-7.7) k/uL Lymphocytes # 0.7 L (1.0-4.8) k/uL Glucose 131 H (74-99) mg/dL Ur Specific [place] 1.050 H (1.001-1.035) Urine Ketones 1+ H (Negative) Diabetes panel 08/17/21 Range/Units 00:47 Sodium 138 (137-145) mmol/L Potassium 4.1 (3.5-5.1) mmol/L Chloride 104 (98-107) mmol/L Carbon Dioxide 26 (22-30) mmol/L BUN 17 (9-20) mg/dL Creatinine 0.88 (0.66-1.25) mg/dL Glucose 131 H (74-99) mg/dL Calcium 9.6 (8.4-10.2) mg/dL AST 27 (17-59) U/L ALT 21 (4-49) U/L Alkaline Phosphatase 55 (38-126) U/L Total Protein 7.9 (6.3-8.2) g/dL Albumin 4.4 (3.5-5.0) g/dL Calcium panel 08/17/21 Range/Units 00:47 Calcium 9.6 (8.4-10.2) mg/dL Albumin 4.4 (3.5-5.0) g/dL Pituitary panel 08/17/21 Range/Units 00:47 Sodium 138 (137-145) mmol/L Potassium 4.1 (3.5-5.1) mmol/L Chloride 104 (98-107) mmol/L Carbon Dioxide 26 (22-30) mmol/L BUN 17 (9-20) mg/dL Creatinine 0.88 (0.66-1.25) mg/dL Glucose 131 H (74-99) mg/dL Calcium 9.6 (8.4-10.2) mg/dL Adrenal panel 08/17/21 Range/Units 00:47 Sodium 138 (137-145) mmol/L Potassium 4.1 (3.5-5.1) mmol/L Chloride 104 (98-107) mmol/L Carbon Dioxide 26 (22-30) mmol/L BUN 17 (9-20) mg/dL Creatinine 0.88 (0.66-1.25) mg/dL Glucose 131 H (74-99) mg/dL Calcium 9.6 (8.4-10.2) mg/dL Total Bilirubin 0.8 (0.2-1.3) mg/dL AST 27 (17-59) U/L ALT 21 (4-49) U/L Alkaline Phosphatase 55 (38-126) U/L Total Protein 7.9 (6.3-8.2) g/dL Albumin 4.4 (3.5-5.0) g/dL
[2021-08-17] MEDS: LOSARTAN 25 MG TAB PO SCH (18:26)
[2021-08-18] MEDS: SODIUM CHLORIDE 0.9% 1,000 ML IV SCH ×2 (04:42→14:47)
[2021-08-18] MEDS: ASCORBIC ACID 500 MG TAB PO SCH (09:43)
[2021-08-18] MEDS: LOSARTAN 25 MG TAB PO SCH (09:44)
[2021-08-18] MEDS: TAMSULOSIN 0.4 MG CAP.ER.24H PO SCH (09:44)
[2021-08-18] MEDS: NON FORMULARY DRUG (Omega-3 Fatty Acids/Fish Oil [Fish Oil 1,000 Mg Softgel] 1 EACH Capsul PO SCH (09:48)
--- NOTE | 2021-08-18 14:33 | P.PN ---
Subjective Progress Note Date: 08/18/21 CHIEF COMPLAINT: Small bowel obstruction HISTORY OF PRESENT ILLNESS: Surgical service is following regards to patient's small bowel traction. Patient had to have NG tube reinserted yesterday due to an episode of projectile vomit. Since NG tube placed he had 2 small bowel movements this morning and is having more flatus. He reports decrease in his right-sided abdominal pain. Afebrile. No new labs for today PHYSICAL EXAM: VITAL SIGNS: Reviewed GENERAL: Well-developed in no acute distress. HEENT: No sclera icterus. Extraocular movements grossly intact. Moist buccal mucosa. Head is atraumatic, normocephalic. Hears conversational speech. No nasal drainage. NECK: Supple without lymphadenopathy. CHEST: Non-labored respirations and equal bilateral excursions. CARDIOVASCULAR: Palpable 2+ radial pulses. ABDOMEN: Soft. Nondistended. Mild tenderness to palpation of the right side of the abdomen MUSCULOSKELETAL: No clubbing or cyanosis. NEUROLOGIC: No focal or lateralizing signs. Cranial nerves II through XII grossly intact. PSYCH: Appropriate affect. Alert and oriented to person, place and time. SKIN: Well perfused. Good skin turgor. ASSESSMENT: 1. Mechanical small bowel obstruction possibly secondary to adhesions. Computed tomography scan abdomen showing luminal narrowing and wall thickening of the ileum. Patient did have recent colonoscopy in May 2020. Likely narrowing and thickening is due to scar tissue. 2. History of diverticulitis with bowel resection 3. History of tubular adenoma colon polyp 4. Leukocytosis possibly reactive 5. History of hypertension PLAN: -Check abdominal x-ray to evaluate for improvement in small bowel obstruction -Continue NG tube for decompression for now -Continue supportive care -Further recommendations forthcoming depending on x-ray results. Physician Strap Stitcher note has been reviewed by physician. Signing provider agrees with the documented findings, assessment, and plan of care. Objective - Vital Signs Vital signs: Vital Signs Temp 98.6 F 08/18/21 05:00 Pulse 73 08/18/21 09:58 Resp 20 08/18/21 05:00 BP 135/79 08/18/21 09:58 Pulse Ox 94 L 08/18/21 05:00 Intake & Output 08/17/21 08/18/21 08/18/21 18:59 06:59 18:59 Weight 74.843 kg Other: Voiding Method Toilet # Voids 3 # Bowel Movements 1 - Labs CBC & Chem 7: 08/17/21 00:47 08/17/21 00:47
--- NOTE | 2021-08-18 15:15 | XR ---
EXAMINATION TYPE: XR abdomen 2V DATE OF EXAM: 08/18/2021 CLINICAL HISTORY: Abdominal pain. Small bowel obstruction. TECHNIQUE: Supine and upright views of the abdomen are obtained. COMPARISON: CT abdomen and pelvis from one day earlier. FINDINGS: Nasogastric tube with interval decompression of stomach. Persistent gas prominent and dilated small b owel loops in the left upper to midabdomen with air-fluid levels. Maximum dilatation slightly more pr ominent than on CT study one day earlier. Gas and fecal material redemonstrated in colonic loops manju g the periphery. No free air. Lung bases show new linear atelectatic changes developing laterally in the left lung base. Osseous structures are intact. Right pelvic dystrophic calcifications or large ph leboliths redemonstrated. IMPRESSION: New nasogastric tube with stomach decompression. Stable or worsening proximal to mid smal l bowel dilatation consistent with persistent mid to distal small bowel obstruction. Transition point is present on CT axial image 36 and coronal image 17 anterior right upper to mid abdomen.
--- NOTE | 2021-08-19 00:16 | P.PN ---
Subjective Progress Note Date: 08/18/21 Patient is a pleasant 65-year-old male came in with complaints of The right lower quadrant abdominal pain with some nausea. Patient had a CT of the abdomen which showed mechanical small bowel obstruction with in the right midabdomen with luminal narrowing and wall thickening in the ileum. Patient had history of colonic resection in the past for diverticulitis and rupture. Patient denied any fever chills patient does have leukocytosis patient the had a NG tube which came out when I'm evaluating the patient patient had about 200 mL drainage from the NG tube presently on IV fluids. She does have bowel sounds and last bowel movement was yesterday 08/18/2021 Patient was hoping to be discharged last night, however, he had an episode of vomiting with clear liquids and NG tube was replaced. He had about 500 CC of gastric content output. Repeat abdominal xray today revealed stable or worsening proximal to mid small bowel dilation consistent with persistent mild to distal small bowel obstruction. Vital signs reveal a Temp of 98.4, heart rate 68, blood pressure 130/78, 97% on room air. Patient will stay overnight and be re-evaluted by surgical team. There are positive bowel sounds and patient is having bowel movements, denies blood in the stool. He does have some mild distention mid epigastric region that is increasing since yesterday. ROS Constitutional: Denied any fatigue denied any fever. Cardio vascular: denied any chest pain, palpitations Gastrointestinal: reports 1 episode of emesis throughout the evening, reports BMs, Pulmonary: Denied any shortness of breath cough Neurologic denied any new focal deficits All inpatient medications were reviewed and appropriate changes in these medications as dictated in the interval history and assessment and plan. PHYSICAL EXAMINATION: GENERAL: The patient is alert and oriented x3, not in any acute distress. Well developed, well nourished. NG Tube present. HEENT: Pupils are round and equally reacting to light. EOMI. No scleral icterus. No conjunctival pallor. Normocephalic, atraumatic. No pharyngeal erythema. No thyromegaly. CARDIOVASCULAR: S1 and S2 present. No murmurs, rubs, or gallops. PULMONARY: Chest is clear to auscultation, no wheezing or crackles. ABDOMEN: Soft, nontender, mild distenion. positive bowel sounds. MUSCULOSKELETAL: No joint swelling or deformity. EXTREMITIES: No cyanosis, clubbing, or pedal edema. NEUROLOGICAL: Gross neurological examination did not reveal any focal deficits. SKIN: No rashes. Assessment and plan -Small bowel obstruction: NGT in place, NPO diet, surgical consult -Leukocytosis reactive without any evidence of infection and this is secondary to bowel obstruction, repeat labs tomorrow. -Benign prostatic hypertrophy -Hypertension -History of diverticulitis with colon resection DVT prophylaxis: Early ambulation Objective - Vital Signs Vital signs: Vital Signs Temp 98.6 F 08/18/21 05:00 Pulse 73 08/18/21 09:58 Resp 20 08/18/21 05:00 BP 135/79 08/18/21 09:58 Pulse Ox 94 L 08/18/21 05:00 Intake & Output 08/17/21 08/18/21 08/18/21 18:59 06:59 18:59 Weight 74.843 kg Other: Voiding Method Toilet # Voids 3 # Bowel Movements 1 - Labs CBC & Chem 7: 08/17/21 00:47 08/17/21 00:47
[2021-08-19] MEDS: SODIUM CHLORIDE 0.9% 1,000 ML IV SCH ×2 (02:46→16:35)
[2021-08-19] MEDS: NON FORMULARY DRUG (Omega-3 Fatty Acids/Fish Oil [Fish Oil 1,000 Mg Softgel] 1 EACH Capsul PO SCH (07:49)
[2021-08-19] MEDS: LOSARTAN 25 MG TAB PO SCH (07:52)
[2021-08-19] MEDS: ASCORBIC ACID 500 MG TAB PO SCH (07:52)
[2021-08-19] MEDS: TAMSULOSIN 0.4 MG CAP.ER.24H PO SCH (07:52)
[2021-08-19 08:00] LABS: Basophils % (A) 0 %; Eosinophils # (A) 0.3 k/uL (0-0.7); Eosinophils % (A) 5 %; HCT 39.2 % (39.0-53.0); Lymphocytes # (A) 0.7 k/uL (1.0-4.8); Lymphocytes % (A) 12 %; MCH 32.2 pg (25.0-35.0); MCHC 34.4 g/dL (31.0-37.0); MCV 93.6 fL (80.0-100.0); Mean Platelet Volume 7.3; Monocytes # (A) 0.4 k/uL (0-1.0); Monocytes % (A) 6 %; Neutrophils # (A) 4.6 k/uL (1.3-7.7); Neutrophils % (A) 75 %; Platelet Count 199 k/uL (150-450); RBC 4.19 m/uL (4.30-5.90); RDW 11.9 % (11.5-15.5); WBC 6.2 k/uL (3.8-10.6)
[2021-08-19 08:05] LABS: HGB 13.5 gm/dL (13.0-17.5)
[2021-08-19] MEDS ORDERED: SALINE NASAL GEL 14.1 GM TUBE NASAL PRN (09:58)
[2021-08-19] MEDS ORDERED: BENZOCAINE SPRAY 1 CAN MUCOUS MEM PRN (09:58)
--- NOTE | 2021-08-19 11:01 | P.PN ---
Subjective Progress Note Date: 08/19/21 Patient is a pleasant 65-year-old male came in with complaints of The right lower quadrant abdominal pain with some nausea. Patient had a CT of the abdomen which showed mechanical small bowel obstruction with in the right midabdomen with luminal narrowing and wall thickening in the ileum. Patient had history of colonic resection in the past for diverticulitis and rupture. Patient denied any fever chills patient does have leukocytosis patient the had a NG tube which came out when I'm evaluating the patient patient had about 200 mL drainage from the NG tube presently on IV fluids. She does have bowel sounds and last bowel movement was yesterday 08/18/2021 Patient was hoping to be discharged last night, however, he had an episode of vomiting with clear liquids and NG tube was replaced. He had about 500 CC of gastric content output. Repeat abdominal xray today revealed stable or worsening proximal to mid small bowel dilation consistent with persistent mild to distal small bowel obstruction. Vital signs reveal a Temp of 98.4, heart rate 68, blood pressure 130/78, 97% on room air. Patient will stay overnight and be re-evaluted by surgical team. There are positive bowel sounds and patient is having bowel movements, denies blood in the stool. He does have some mild distention mid epigastric region that is increasing since yesterday. 08/19/2021 Patient evaluated today resting bed. He was lying flast last night to sleep with NG tube to suction in place. He states that he is now having some irritation from the NG tube and his throat feels sore. We ordered some saline gel for the nasal passages, lozenges, and cepacol. He has about 600 CC in the drainage canister, unsure if it was dumped from yesterday and this is new. Pending evaluation from surgical team today. NO BMs throughout the evening. Temp 98.1, heart rate 80, blood pressure 160/91, 96% on room air. Abdominal distention improved as compared to yesterday. ROS Constitutional: Denied any fatigue denied any fever. Cardio vascular: denied any chest pain, palpitations Gastrointestinal: Reports decreased distention Pulmonary: Denied any shortness of breath cough Neurologic denied any new focal deficits All inpatient medications were reviewed and appropriate changes in these medications as dictated in the interval history and assessment and plan. PHYSICAL EXAMINATION: GENERAL: The patient is alert and oriented x3, not in any acute distress. Well developed, well nourished. NG Tube present. HEENT: Pupils are round and equally reacting to light. EOMI. No scleral icterus. No conjunctival pallor. Normocephalic, atraumatic. No pharyngeal erythema. No thyromegaly. CARDIOVASCULAR: S1 and S2 present. No murmurs, rubs, or gallops. PULMONARY: Chest is clear to auscultation, no wheezing or crackles. ABDOMEN: Soft, nontender, mild distenion. positive bowel sounds. MUSCULOSKELETAL: No joint swelling or deformity. EXTREMITIES: No cyanosis, clubbing, or pedal edema. NEUROLOGICAL: Gross neurological examination did not reveal any focal deficits. SKIN: No rashes. Assessment and plan -Small bowel obstruction: NGT in place, NPO diet with ice chips, surgical consult -Leukocytosis reactive without any evidence of infection, improved -Benign prostatic hypertrophy -Hypertension -History of diverticulitis with colon resection DVT prophylaxis: Early ambulation Plan Pending surgical evaluation today Cont with NG tube for now Objective - Vital Signs Vital signs: Vital Signs Temp 98.1 F 08/19/21 04:37 Pulse 80 08/19/21 04:37 Resp 18 08/19/21 04:37 BP 160/91 08/19/21 04:37 Pulse Ox 96 08/19/21 04:37 Intake & Output 08/18/21 08/19/21 08/19/21 18:59 06:59 18:59 Intake Total 0 0 Output Total 150 Balance 0 -150 Intake: Oral 0 0 Output: Urine 150 Other: Voiding Method Toilet Toilet # Voids 3 3 - Labs CBC & Chem 7: 08/19/21 07:09 08/17/21 00:47 Labs: Abnormal Lab Results - Last 24 Hours (Table) 08/19/21 Range/Units 07:09 RBC 4.19 L (4.30-5.90) m/uL Lymphocytes # 0.7 L (1.0-4.8) k/uL
--- NOTE | 2021-08-19 11:11 | P.PN ---
Progress Note - Text Progress Note Date: 08/19/21 Patient states he had flatus last night. He denies any significant abdominal pain. His abdominal x-ray from yesterday shows a persistent small bowel obstruction. On exam vital signs are stable. Abdomen soft. Patient will remain with NG tube. If he has continued bowel function we will remove the N NG tube. If his valve structurally progresses. He may need exploratory laparotomy.
[2021-08-19] MEDS: BENZOCAINE/MENTHOL LOZENG 1 EACH LOZENGE MUCOUS MEM PRN ×2 (12:38→16:35)
[2021-08-20] MEDS: TAMSULOSIN 0.4 MG CAP.ER.24H PO SCH (09:04)
[2021-08-20] MEDS: LOSARTAN 25 MG TAB PO SCH (09:04)
[2021-08-20] MEDS: SODIUM CHLORIDE 0.9% 1,000 ML IV SCH ×3 (09:06→17:48)
[2021-08-20] MEDS: ASCORBIC ACID 500 MG TAB PO SCH (09:51)
[2021-08-20] MEDS: NON FORMULARY DRUG (Omega-3 Fatty Acids/Fish Oil [Fish Oil 1,000 Mg Softgel] 1 EACH Capsul PO SCH (09:52)
--- NOTE | 2021-08-20 10:58 | P.PN ---
Progress Note - Text Progress Note Date: 08/20/21 The patient has a large amount of flatus overnight. He states he feels better. He denies any abdominal pain. On exam her vital signs are stable. Abdomen soft. Resolving partial small bowel structure. Patient is nasogastric tube removed. We'll start clear liquid diet
--- NOTE | 2021-08-20 15:40 | P.PN ---
Subjective Progress Note Date: 08/20/21 Patient is a pleasant 65-year-old male came in with complaints of The right lower quadrant abdominal pain with some nausea. Patient had a CT of the abdomen which showed mechanical small bowel obstruction with in the right midabdomen with luminal narrowing and wall thickening in the ileum. Patient had history of colonic resection in the past for diverticulitis and rupture. Patient denied any fever chills patient does have leukocytosis patient the had a NG tube which came out when I'm evaluating the patient patient had about 200 mL drainage from the NG tube presently on IV fluids. She does have bowel sounds and last bowel movement was yesterday 08/18/2021 Patient was hoping to be discharged last night, however, he had an episode of vomiting with clear liquids and NG tube was replaced. He had about 500 CC of gastric content output. Repeat abdominal xray today revealed stable or worsening proximal to mid small bowel dilation consistent with persistent mild to distal small bowel obstruction. Vital signs reveal a Temp of 98.4, heart rate 68, blood pressure 130/78, 97% on room air. Patient will stay overnight and be re-evaluted by surgical team. There are positive bowel sounds and patient is having bowel movements, denies blood in the stool. He does have some mild distention mid epigastric region that is increasing since yesterday. 08/19/2021 Patient evaluated today resting bed. He was lying flast last night to sleep with NG tube to suction in place. He states that he is now having some irritation from the NG tube and his throat feels sore. We ordered some saline gel for the nasal passages, lozenges, and cepacol. He has about 600 CC in the drainage canister, unsure if it was dumped from yesterday and this is new. Pending evaluation from surgical team today. NO BMs throughout the evening. Temp 98.1, heart rate 80, blood pressure 160/91, 96% on room air. Abdominal distention improved as compared to yesterday. 08/20/2021 Patient evaluated today resting in bed, NGT in place, no acute events overnight. Continues to have bowel sounds, passing large amounts of gas, and abdomen feels softer than yesterday. Plan from surgical today is to removed NGT and to begin clear liquid diets and monitor. Vital signs today T 98.3, heart rate 64, blood pressure 162/83, 97% on room air. ROS Constitutional: Denied any fatigue denied any fever. Cardio vascular: denied any chest pain, palpitations Gastrointestinal: Reports decreased distention, reports large amount of gas. Pulmonary: Denied any shortness of breath cough Neurologic denied any new focal deficits All inpatient medications were reviewed and appropriate changes in these medications as dictated in the interval history and assessment and plan. PHYSICAL EXAMINATION: GENERAL: The patient is alert and oriented x3, not in any acute distress. Well developed, well nourished. NG Tube present. HEENT: Pupils are round and equally reacting to light. EOMI. No scleral icterus. No conjunctival pallor. Normocephalic, atraumatic. No pharyngeal erythema. No thyromegaly. CARDIOVASCULAR: S1 and S2 present. No murmurs, rubs, or gallops. PULMONARY: Chest is clear to auscultation, no wheezing or crackles. ABDOMEN: Soft, nontender, positive bowel sounds. MUSCULOSKELETAL: No joint swelling or deformity. EXTREMITIES: No cyanosis, clubbing, or pedal edema. NEUROLOGICAL: Gross neurological examination did not reveal any focal deficits. SKIN: No rashes. Assessment and plan -Small bowel obstruction: resolving, advance to clear liquid, remove NG tube -Leukocytosis reactive without any evidence of infection, resolved -Benign prostatic hypertrophy -Hypertension -History of diverticulitis with colon resection DVT prophylaxis: Early ambulation Plan Remove NG Tube Clear liquid diet repeat BMP tomorrow Surgical Consult Possible DC tomorrow if tolerating diet and cleared by surgery. Objective - Vital Signs Vital signs: Vital Signs Temp 97.5 F L 08/20/21 05:00 Pulse 67 08/20/21 09:01 Resp 18 08/20/21 05:00 BP 138/84 08/20/21 09:01 Pulse Ox 93 L 08/20/21 05:00 Intake & Output 08/19/21 08/20/21 08/20/21 18:59 06:59 18:59 Intake Total 1100 0 Output Total 100 Balance 1000 0 Intake: Intake, IV Titration 1100 Amount Sodium Chloride 0.9% 1, 1100 000 ml @ 100 mls/hr IV . Q10H [facility] Rx#:[id number] Oral 0 Output: Gastric Drainage 100 Other: Voiding Method Toilet # Voids 2 - Labs CBC & Chem 7: 08/19/21 07:09 08/17/21 00:47
[2021-08-21] MEDS: NON FORMULARY DRUG (Omega-3 Fatty Acids/Fish Oil [Fish Oil 1,000 Mg Softgel] 1 EACH Capsul PO SCH (08:48)
[2021-08-21] MEDS: ASCORBIC ACID 500 MG TAB PO SCH (09:00)
[2021-08-21] MEDS: TAMSULOSIN 0.4 MG CAP.ER.24H PO SCH (09:00)
[2021-08-21] MEDS: LOSARTAN 25 MG TAB PO SCH (09:00)
[2021-08-21] MEDS: SODIUM CHLORIDE 0.9% 1,000 ML IV SCH ×2 (09:10→09:11)
[2021-08-21 14:36] VITALS: BP 136/77; PULSE 65; RESP 17; TEMP 98.4
--- NOTE | 2021-08-21 15:09 | P.PN ---
Subjective Progress Note Date: 08/21/21 CHIEF COMPLAINT: Small bowel obstruction HISTORY OF PRESENT ILLNESS: Surgical service is following regards to patient's small bowel obstruction. Patient's NG tube was discontinued yesterday. He is started on a clear liquid diet and tolerated it. He is having bowel movements and flatus. Reports a decrease in abdominal pain. He reports he still has minimal soreness noted on the right side of the abdomen. He has been up and ambulating. Denies any nausea or vomiting. Afebrile. No new labs PHYSICAL EXAM: VITAL SIGNS: Reviewed GENERAL: Well-developed in no acute distress. HEENT: No sclera icterus. Extraocular movements grossly intact. Moist buccal mucosa. Head is atraumatic, normocephalic. Hears conversational speech. No nasal drainage. NECK: Supple without lymphadenopathy. CHEST: Non-labored respirations and equal bilateral excursions. CARDIOVASCULAR: Palpable 2+ radial pulses. ABDOMEN: Soft. Nondistended. Mild tenderness to palpation of the right side of the abdomen MUSCULOSKELETAL: No clubbing or cyanosis. NEUROLOGIC: No focal or lateralizing signs. Cranial nerves II through XII grossly intact. PSYCH: Appropriate affect. Alert and oriented to person, place and time. SKIN: Well perfused. Good skin turgor. ASSESSMENT: 1. Mechanical small bowel obstruction possibly secondary to adhesions. Computed tomography scan abdomen showing luminal narrowing and wall thickening of the ileum. Patient did have recent colonoscopy in May 2020. Likely narrowing and thickening is due to scar tissue. 2. History of diverticulitis with bowel resection 3. History of tubular adenoma colon polyp 4. Leukocytosis possibly reactive 5. History of hypertension PLAN: -Patient can be discharge from surgical standpoint -Recommend patient to follow-up in the office with Dr. Celaya -No surgical intervention planned during this admission -Advance diet to full liquids and then to low fiber as tolerated -Continue supportive care -Encourage patient to ambulate Physician Insulation Inspector note has been reviewed by physician. Signing provider agrees with the documented findings, assessment, and plan of care. Objective - Vital Signs Vital signs: Vital Signs Temp 98.2 F 08/21/21 04:56 Pulse 68 08/21/21 08:58 Resp 16 08/21/21 04:56 BP 140/79 08/21/21 08:58 Pulse Ox 97 08/21/21 04:56 Intake & Output 1208/21/21 08/21/21 18:59 06:59 18:59 Intake Total 1200 Balance 1200 Intake: Intake, IV Titration 1200 Amount Sodium Chloride 0.9% 1, 1200 000 ml @ 100 mls/hr IV . Q10H [facility] Rx#:[id number] Other: Voiding Method Toilet # Voids 2 - Labs CBC & Chem 7: 08/19/21 07:09 08/17/21 00:47
--- NOTE | 2021-08-21 15:32 | P.DS ---
Providers Date of admission: 08/17/21 02:58 Expected date of discharge: 08/21/21 Attending physician: Marlyn Chicas Consults: 08/17/21 03:29 Consult Physician Urgent Consulting Provider: Lee Ann Celaya Consult Reason/Comments: small bowel obstruction Do you want consulting provider notified?: Yes, Notify in am Primary care physician: Jemma Slaughter Hospital Course: Diagnoses on discharge: 1. Mechanical small bowel obstruction possibly secondary to adhesions. 2. History of diverticulitis with partial bowel resection in the past. 3. History of tubular adenoma colon polyp 4. Leukocytosis possibly reactive 5. History of hypertension Hospital course : Patient is a pleasant 65-year-old male came in with complaints of The right lower quadrant abdominal pain with some nausea. Patient had a CT of the abdomen which showed mechanical small bowel obstruction with in the right midabdomen with luminal narrowing and wall thickening in the ileum. Patient had history of colonic resection in the past for diverticulitis and rupture. Patient denied any fever chills patient does have leukocytosis patient the had a NG tube which came out when I'm evaluating the patient patient had about 200 mL drainage from the NG tube presently on IV fluids. She does have bowel sounds and last bowel movement was yesterday 08/18/2021 Patient was hoping to be discharged last night, however, he had an episode of vomiting with clear liquids and NG tube was replaced. He had about 500 CC of gastric content output. Repeat abdominal xray today revealed stable or worsening proximal to mid small bowel dilation consistent with persistent mild to distal small bowel obstruction. Vital signs reveal a Temp of 98.4, heart rate 68, blood pressure 130/78, 97% on room air. Patient will stay overnight and be re-evaluted by surgical team. There are positive bowel sounds and patient is having bowel movements, denies blood in the stool. He does have some mild distention mid epigastric region that is increasing since yesterday. 08/19/2021 Patient evaluated today resting bed. He was lying flast last night to sleep with NG tube to suction in place. He states that he is now having some irritation from the NG tube and his throat feels sore. We ordered some saline gel for the nasal passages, lozenges, and cepacol. He has about 600 CC in the drainage canister, unsure if it was dumped from yesterday and this is new. Pending evaluation from surgical team today. NO BMs throughout the evening. Temp 98.1, heart rate 80, blood pressure 160/91, 96% on room air. Abdominal distention improved as compared to yesterday. 08/20/2021 Patient evaluated today resting in bed, no acute events overnight. Continues to have bowel sounds, passing large amounts of gas, and abdomen feels softer than yesterday. Plan from surgical today is to removed NGT and to begin clear liquid diets and monitor. Vital signs today T 98.3, heart rate 64, blood pressure 162/83, 97% on room air. On 08/21/2021 patient was seen and examined on the medical floor he is alert and oriented 3 in no apparent distress he is able to tolerate diet well he had a bowel movement and is passing gas, there is no nausea vomiting or abdominal pain. He was evaluated by surgery and was cleared for discharge. Patient will be discharged to home today he will follow-up with his primary care physician Dr. Slaughter within one week she will also follow with surgery in 1-2 weeks patient instructed to return to emergency room if having abdominal pain nausea vomiting and constipation Patient Condition at Discharge: Stable Plan - Discharge Summary Discharge Rx Participant: Yes New Discharge Prescriptions: Continue Tamsulosin [Flomax] 0.4 mg PO DAILY [place]-3 Fatty Acids/Fish Oil [Fish Oil 1,000 mg Softgel] 1 cap PO DAILY L.acidoph,Paracasei, B.lactis [Probiotic] 1 cap PO DAILY Ascorbic Acid [Vitamin C] 1,000 mg PO DAILY Losartan [Cozaar] 25 mg PO DAILY Discharge Medication List Tamsulosin [Flomax] 0.4 mg PO DAILY 10/12/19 [History] Ascorbic Acid [Vitamin C] 1,000 mg PO DAILY 08/17/21 [History] L.acidoph,Paracasei, B.lactis [Probiotic] 1 cap PO DAILY 08/17/21 [History] Losartan [Cozaar] 25 mg PO DAILY 08/17/21 [History] [place]-3 Fatty Acids/Fish Oil [Fish Oil 1,000 mg Softgel] 1 cap PO DAILY 08/17/21 [History] Follow up Appointment(s)/Referral(s): Jemma Slaughter MD [Primary Care Provider] - 3 Days Lee Ann Celaya MD [STAFF PHYSICIAN] - 08/24/21 Patient Instructions/Handouts: Low Fiber Diet (ED), Bowel Obstruction (GEN) Discharge Disposition: HOME SELF-CARE
== END 2021-08-21 16:10 | disposition home or self-care (01) | DRG 390 ==
LOC: EC 21:28 → 4SSUR 08-17 02:58 → 5NMEDONC 08-17 14:11
PROVIDERS: ADMIT Internal Medicine; ATTEND Internal Medicine
PROC: 0D9670Z Drainage of Stomach with Drainage Device, Via Natural or Artificial Opening (ICD-10-PCS; principal; 2021-08-17)
PROC: 0D9670Z Drainage of Stomach with Drainage Device, Via Natural or Artificial Opening (ICD-10-PCS; 2021-08-18)
DX: K56.50 Intestinal adhesions [bands], unspecified as to partial versus complete obstruction (principal); R11.10 Vomiting, unspecified; D72.829 Elevated white blood cell count, unspecified; I10 Essential (primary) hypertension; M17.0 Bilateral primary osteoarthritis of knee; N40.0 Benign prostatic hyperplasia without lower urinary tract symptoms; Z20.822 Contact with and (suspected) exposure to COVID-19; K57.90 Diverticulosis of intestine, part unspecified, without perforation or abscess without bleeding; I45.10 Unspecified right bundle-branch block; K21.9 Gastro-esophageal reflux disease without esophagitis; Z98.890 Other specified postprocedural states; Z86.010 Personal history of colon polyps; Z79.899 Other long term (current) drug therapy; Z82.49 Family history of ischemic heart disease and other diseases of the circulatory system; Z87.891 Personal history of nicotine dependence; Z90.49 Acquired absence of other specified parts of digestive tract; Z91.010 Allergy to peanuts; Z91.013 Allergy to seafood; Z91.048 Other nonmedicinal substance allergy status
CPT/HCPCS: 36415; 74019; 74177; 80053; 81003; 82150; 83605; 83690; 85025; 87635; 96374; 96375; 99285

== ENCOUNTER → 2021-10-23 | Outpatient (CLI) | payer MEDICARE, BC ==
[2021-10-24 16:56] LABS: Coronavirus SARS CoV-2 Detected (Not Detected)
== END | disposition home or self-care (01) ==
LOC: LABPAT 13:13
PROVIDERS: ATTEND Surgery Plastic and Reconstructive Surgery
DX: U07.1 COVID-19 (principal)
CPT/HCPCS: U0003; U0005

== ENCOUNTER → 2021-11-06 | Outpatient (CLI) | payer BC, MEDICARE ==
[2021-11-07 13:07] LABS: Coronavirus SARS CoV-2 Not Detected (Not Detected)
== END | disposition home or self-care (01) ==
LOC: LABPAT 15:29
PROVIDERS: ATTEND Surgery Plastic and Reconstructive Surgery
DX: Z01.812 Encounter for preprocedural laboratory examination (principal); Z20.822 Contact with and (suspected) exposure to COVID-19
CPT/HCPCS: U0003; C9803

== ENCOUNTER 2021-11-09 10:24 | Day surgery (SDC) | payer BC, MEDICARE ==
[2021-09-27 11:43] VITALS: BMI 22.4
--- NOTE | 2021-11-09 07:34 | P.GSHP ---
History of Present Illness H&P Date: 11/09/21 CHIEF COMPLAINT: History of intra-abdominal adhesions HISTORY OF PRESENT ILLNESS: The patient is a 66-year-old male who presents with history of intra-abdominal adhesions from multiple prior surgeries including increasing abdominal pain. He now presents for diagnostic laparoscopy including lysis of adhesions. PAST MEDICAL HISTORY: Please see list. PAST SURGICAL HISTORY: Please see list. MEDICATIONS: Please see list. ALLERGIES: Please see list. SOCIAL HISTORY: No illicit drug use FAMILY HISTORY: No reports of Crohn disease or ulcerative colitis. REVIEW OF ORGAN SYSTEMS: CONSTITUTIONAL: No reports of fevers or chills. GI: Denies any blood in stools or constipation. PHYSICAL EXAM: VITAL SIGNS: Stable GENERAL: Well-developed pleasant and in no acute distress. HEENT: No scleral icterus. Extraocular movements grossly intact. Moist buccal mucosa. NECK: Supple without lymphadenopathy. CHEST: Unlabored respirations. Equal bilateral excursions. CARDIOVASCULAR: Regular rate and rhythm. Distal 2+ pulses. ABDOMEN: Soft, diffuse abdominal tenderness. No peritonitis. MUSCULOSKELETAL: No clubbing, cyanosis, or edema. ASSESSMENT: 1. Diffuse abdominal pain. 2. History of multiple abdominal surgeries. 3. Intra-abdominal adhesions. PLAN: 1. Robotic lysis of adhesions were described in detail including risk of injury to the intestine, need for further surgery, and open technique. 2. DVT prophylaxis. 3. Antibiotic prophylaxis. Past Medical History Past Medical History: Hypertension, Prostate Disorder Additional Past Medical History / Comment(s): states nasal polyp, diverticulitis, small bowel blockage Dev 2020, RBBB, hiatal hernia History of Any Multi-Drug Resistant Organisms: None Reported Past Surgical History: Bowel Resection Additional Past Surgical History / Comment(s): previous nasal polyps removed, Jaw sx with pin, colon resection d/t diverticulitis Past Anesthesia/Blood Transfusion Reactions: No Reported Reaction Additional Past Anesthesia/Blood Transfusion Reaction / Comment(s): hx jaw surgery with pin Smoking Status: Former smoker - Past Family History Father Family Medical History: No Reported History Additional Family Medical History / Comment(s): Father lived to be 90yrs. Mother Family Medical History: Hypertension Additional Family Medical History / Comment(s): Mother lived to be 76yrs old. Sister(s) Family Medical History: Cancer Additional Family Medical History / Comment(s): breast cancer Medications and Allergies Home Medications Medication Instructions Recorded Confirmed Type Tamsulosin [Flomax] 0.4 mg PO DAILY 10/12/19 11/07/21 History Ascorbic Acid [Vitamin C] 1,000 mg PO DAILY 08/17/21 11/07/21 History L.acidoph,Paracasei, B.lactis 1 cap PO DAILY 08/17/21 11/07/21 History [Probiotic] Losartan [Cozaar] 25 mg PO DAILY 08/17/21 11/07/21 History [place]-3 Fatty Acids/Fish Oil [Fish 1 cap PO DAILY 08/17/21 11/07/21 History Oil 1,000 mg Softgel] Allergies Allergy/AdvReac Type Severity Reaction Status Date / Time grass pollen Allergy Dyspnea Verified 11/07/21 11:53 mold Allergy Dyspnea Verified 11/07/21 11:53 peanut Allergy Dyspnea Verified 11/07/21 11:53 pollen extracts Allergy Dyspnea Verified 11/07/21 11:53 shellfish derived [Shellfish] Allergy Dyspnea Verified 11/07/21 11:53 dust Allergy Dyspnea Uncoded 11/07/21 11:53
[~2021-11-09 10:24] MED LIST changes: +ACETAMINOPHEN TAB 500 MG TAB PO PRN; +DEXAMETHASONE SOD PHOSPHATE 4 MG/ML 1 ML VIAL IV ONE; +GABAPENTIN 300 MG CAP PO PRN; +HEPARIN SODIUM,PORCINE/PF 5,000 UNIT/0.5 ML SYRINGE SQ PRN; +HYDROmorphone 0.5 MG/0.5 ML SYRINGE IVP PRN; +MELOXICAM 7.5 MG TAB PO PRN; +ONDANSETRON 4 MG/2 ML VIAL IVP ONE; +SCOPOLAMINE 1.5MG/72HR PATCH TRANSDERM ONE; +TAMSULOSIN 0.4 MG CAP.ER.24H PO PRN
[2021-11-09 11:28] LABS: Basophils % (A) 1 %; Eosinophils # (A) 0.2 k/uL (0-0.7); Eosinophils % (A) 4 %; HCT 44.7 % (39.0-53.0); HGB 15.3 gm/dL (13.0-17.5); Lymphocytes % (A) 20 %; MCHC 34.2 g/dL (31.0-37.0); MCV 96.6 fL (80.0-100.0); Mean Platelet Volume 7.2; Monocytes # (A) 0.3 k/uL (0-1.0); Monocytes % (A) 5 %; Neutrophils # (A) 3.5 k/uL (1.3-7.7); Neutrophils % (A) 68 %; Platelet Count 221 k/uL (150-450); RBC 4.62 m/uL (4.30-5.90); RDW 12.1 % (11.5-15.5); WBC 5.1 k/uL (3.8-10.6)
[2021-11-09] MEDS ORDERED: MIDAZOLAM 2 MG/2 ML VIAL IVP ONE (11:33)
[2021-11-09] MEDS ORDERED: fentaNYL (PF) 50 MCG/ML 2 ML AMP IVP ONE (11:33)
[2021-11-09 11:47] LABS: ALT 17 U/L (4-49); AST 22 U/L (17-59); African American GFR (CKD) >90 (>60 ml/min/1.73 sqM); Albumin 4.1 g/dL (3.5-5.0); Alkaline Phosphatase 57 U/L (38-126); Anion Gap 6 mmol/L; Blood Urea Nitrogen 10 mg/dL (9-20); Calcium 9.2 mg/dL (8.4-10.2); Carbon Dioxide 25 mmol/L (22-30); Chloride 107 mmol/L (98-107); Glucose 101 mg/dL (74-99); Non-African American GFR(CKD) 89 (>60 ml/min/1.73 sqM); Potassium 3.8 mmol/L (3.5-5.1); Sodium 138 mmol/L (137-145); Total Bilirubin 1.1 mg/dL (0.2-1.3); Total Protein 7.5 g/dL (6.3-8.2)
[2021-11-09] MEDS ORDERED: ROPIVACAINE 5 MG/ML 30 ML VIAL ONE (12:43)
[2021-11-09] MEDS ORDERED: GLYCOPYRROLATE 0.2 MG/ML 2 ML VIAL ONE (12:43)
[2021-11-09] MEDS ORDERED: NEOSTIGMINE 1 MG/ML 10 ML VIAL ONE (12:43)
[2021-11-09] MEDS ORDERED: ROCURONIUM 10 MG/ML (5 ML VIAL) IV ONE (12:43)
[2021-11-09] MEDS ORDERED: fentaNYL (PF) 50 MCG/ML 2 ML AMP ONE (12:43)
[2021-11-09] MEDS ORDERED: MIDAZOLAM 2 MG/2 ML VIAL ONE (12:43)
[2021-11-09] MEDS ORDERED: SODIUM CHLORIDE 0.9% (PF) 10 ML VIAL ONE (12:43)
[2021-11-09] MEDS ORDERED: PROPOFOL 10 MG/ML 20 ML VIAL IV ONE (12:43)
[2021-11-09] MEDS ORDERED: ePHEDrine 50 MG/ML 1 ML VIAL ONE (12:43)
[2021-11-09] MEDS ORDERED: BUPIVACAIN-EPI 0.25%-1:200,000 30 ML VIAL SQ ONE (13:17)
[2021-11-09] MEDS ORDERED: LACTATED RINGERS 1,000 ML IV ONE (13:42)
--- NOTE | 2021-11-09 14:15 | P.ANPRN ---
Procedure Note - Anesthesia - Nerve Block Performed Bilateral Erector Spinae Single Time Out Performed: Yes (1133) Date of Procedure: 11/09/21 Procedure Start Time: 11:34 Procedure Stop Time: 11:41 Location of Patient: PreOp Indication: Acute Post-Operative Pain, Requested by Surgeon Specifically requested for management of pain by : Lee Ann Celaya Sedation Type: Sedate with meaningful contact maintained Preparation: Sterile Prep Position: Prone Catheter: None Needle Types: Pajunk Needle Gauge: 21 Ultrasound used to visualize needle placement: Yes Ultrasound used to observe medication spread: Yes Injectate: 0.5% Ropivacaine (see comment for volume) (15cc + 15cc nacl pf) Blood Aspirated: No Pain Paresthesia on Injection Noted: No Resistance on Injection: Normal Image Stored and Saved: Yes Events: Uneventful and Well Tolerated
[2021-11-09 15:02] VITALS: TEMP 97.9
--- NOTE | 2021-11-09 15:13 | P.OP ---
Date of Procedure: 11/09/21 Description of Procedure: SURGEON: LEE ANN CELAYA MD PREOPERATIVE DIAGNOSES: 1. Recent small bowel obstruction with right sided abdominal pain 2. Hypertensive heart disease 3. History of bowel resection due to diverticulitis 4. 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 Recent small bowel obstruction 2. Hypertensive heart disease 3. History of bowel resection due to diverticulitis 4. 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 Severe peritoneal adhesions greater omentum to the abdominal wall, pelvis OPERATION: 1. Robotic-assisted da Gen Xi laparoscopic extensive lysis of adhesions over 1 hr COMPLICATIONS: None. Anesthesia: GETA, local Estimated Blood Loss (ml): 5 Pathology: none sent Condition: stable Disposition: same day OPERATIVE FINDINGS: 1. Severe peritoneal adhesions involving pelvis, midline, right upper quadrant INDICATIONS: The patient is a 66-year-old male who presents with recent small bowel obstruction due to peritoneal adhesions. Prior bowel resection due to sigmoid diverticulitis. Surgical intervention with lysis of adhesions was described given his history of severe adhesive band disease. Informed consent was obtained. Robotic assisted laparoscopic approach was described. Benefits and risks of the procedure including but not limited to bleeding, infection, injury to the small bowel was described. Informed consent was obtained. DESCRIPTION OF PROCEDURE: In the presurgical area, the abdomen was marked with indelible marker at locations of his abdominal pain. Patient was brought to the operating room, placed in supine position. After general induction, the abdomen had been prepped and draped in standard sterile fashion. The robotic da Gen XI system was primed. After a timeout protocol was performed, the patient had been prepped and draped in standard sterile fashion. The robot was docked along the left lateral abdomen. A 5 mm 0 degrees laparoscopic trocar entry was performed along the left upper quadrant. The abdomen was insufflated to 15 mmHg pressure which he tolerated well. Diagnostic laparoscopy demonstrated severe intra-abdominal adhesions involving the midline, pelvis including right upper quadrant. The small bowel adherent to the midline and right upper quadrant. No injury to the bowel, viscera or mesentery was identified. Next, three 8 mm robotic ports were placed along the left lateral abdomen. Please note that the ports were placed at least 8 cm away from the target anatomy. Instruments were interchanged using only 3 ports for a grasper, vessel sealer, and hook with cautery. Instruments were interchanged by the public health training assistant including Bovie cautery scissors. I had sat at the console. The camera was positioned along the epigastrium. Extensive lysis of adhesions over 1 hour was performed. Carefully the adhesions were taken down without injury to the small bowel using vessel sealer and hook cautery. Severe interloop adhesions were also addressed bluntly using vessel sealer. Hemostasis was excellent and abdomen was dry upon completion. Along the pelvis, moderate peritoneal adhesions were also addressed bluntly. The robot was undocked. All pneumoperitoneum and instruments were evacuated from the abdominal cavity. The incisions were reapproximated using 4-0 Monocryl in an interrupted subcuticular fashion. Please note along the trocar sites, local anesthetic was placed as a field block prior to insertion of all instruments. Liquid glue was applied to the skin. At the end of the procedure needle, sponge, and instrument count had been verified correct by the surgical aides teacher. The patient was transferred to [facility] tan[facility] care unit in stable condition. Intraoperative findings were described to the patients Rebeca over the telephone. Plan - Discharge Summary Discharge Rx Participant: Yes New Discharge Prescriptions: New Simethicone [Gas-X] 125 mg PO AC-TID PRN #20 capsule PRN Reason: Pain Ibuprofen [Motrin] 600 mg PO Q8HR PRN #30 tab PRN Reason: Pain Acetaminophen Tab [Tylenol Tab] 1,000 mg PO Q6HR PRN #30 tablet PRN Reason: Pain Continue Tamsulosin [Flomax] 0.4 mg PO DAILY [place]-3 Fatty Acids/Fish Oil [Fish Oil 1,000 mg Softgel] 1 cap PO DAILY L.acidoph,Paracasei, B.lactis [Probiotic] 1 cap PO DAILY Ascorbic Acid [Vitamin C] 1,000 mg PO DAILY Losartan [Cozaar] 25 mg PO DAILY Discharge Medication List Tamsulosin [Flomax] 0.4 mg PO DAILY 10/12/19 [History] Ascorbic Acid [Vitamin C] 1,000 mg PO DAILY 08/17/21 [History] L.acidoph,Paracasei, B.lactis [Probiotic] 1 cap PO DAILY 08/17/21 [History] Losartan [Cozaar] 25 mg PO DAILY 08/17/21 [History] [place]-3 Fatty Acids/Fish Oil [Fish Oil 1,000 mg Softgel] 1 cap PO DAILY 08/17/21 [History] Acetaminophen Tab [Tylenol Tab] 1,000 mg PO Q6HR PRN #30 tablet 11/09/21 [Rx] Ibuprofen [Motrin] 600 mg PO Q8HR PRN #30 tab 11/09/21 [Rx] Simethicone [Gas-X] 125 mg PO AC-TID PRN #20 capsule 11/09/21 [Rx] Follow up Appointment(s)/Referral(s): Lee Ann Celaya MD [STAFF PHYSICIAN] - 11/14/21 (Telehealth available) Patient Instructions/Handouts: *[facility]gery [facility] - Managing Your Pain After Surgery Without Opioids, Lysis of Abdominal Adhesions (DC) Activity/Diet/Wound Care/Special Instructions: Cautious lifting over 10 pounds in 2 weeks until November 23. May shower. No bath tub soaks for two weeks until November 23. Diet as tolerated. Use Tylenol, simethicone and ibuprofen or Aleve scheduled for the next 24-48 hours for best pain relief. Use ice along incisions for today to prevent swelling. Discharge Disposition: HOME SELF-CARE
[2021-11-09 15:46] VITALS: PULSE 61; RESP 18
[2021-11-09 16:18] VITALS: BP 117/72
== END 2021-11-09 16:38 | disposition home or self-care (01) ==
LOC: OR 10:24
PROVIDERS: ATTEND Surgery Plastic and Reconstructive Surgery
DX: K66.0 Peritoneal adhesions (postprocedural) (postinfection) (principal); I11.9 Hypertensive heart disease without heart failure; Z90.49 Acquired absence of other specified parts of digestive tract; N13.9 Obstructive and reflux uropathy, unspecified; N40.1 Benign prostatic hyperplasia with lower urinary tract symptoms; K21.9 Gastro-esophageal reflux disease without esophagitis; I45.10 Unspecified right bundle-branch block; K44.9 Diaphragmatic hernia without obstruction or gangrene; Z98.890 Other specified postprocedural states; Z87.891 Personal history of nicotine dependence; Z82.49 Family history of ischemic heart disease and other diseases of the circulatory system; Z87.19 Personal history of other diseases of the digestive system; Z80.3 Family history of malignant neoplasm of breast; Z79.899 Other long term (current) drug therapy; Z91.010 Allergy to peanuts; Z91.013 Allergy to seafood; Z91.09 Other allergy status, other than to drugs and biological substances
CPT/HCPCS: 49329; S2900; 64999; 80053; 85025

== ENCOUNTER → 2022-01-01 | Outpatient (CLI) | payer MEDICARE, BC ==
--- NOTE | 2022-01-01 07:52 | US ---
EXAMINATION TYPE: US gallbladder DATE OF EXAM: 01/01/2022 COMPARISON: CT CLINICAL HISTORY: K80.10 calculus of gallbladder with cholecystitis; colon resection as child and red o due to adhesions per patient history; HIDA SCAN scheduled 01/03/2022 EXAM MEASUREMENTS: Liver Length: 15.6 cm Gallbladder Wall: 0.2 cm CBD: 0.3 cm Right Kidney: 10.5 x 6.3 x 4.8 cm Pancreas: mildly heterogeneous; tail mildly obscured by overlying bowel gas Liver: wnl Gallbladder: mid gallbladder fold; wall polyp noted as hyperechoic focus with comet tail artifact se en anterior wall = 0.2 x 0.2 x 0.2cm Evidence for sonographic Levin's sign: no CBD: wnl Right Kidney: No hydronephrosis or masses seen; extracapsular,crescent shaped anechoic area seen brennan r inferior pole suggests sonographic "sweat sign" for renal failure. IMPRESSION: 1. Hepatic steatosis. 2. Gallbladder polyp.
== END | disposition home or self-care (01) ==
LOC: RADUSWWP 06:52
PROVIDERS: ATTEND Surgery Plastic and Reconstructive Surgery
DX: K76.0 Fatty (change of) liver, not elsewhere classified (principal); K82.4 Cholesterolosis of gallbladder
CPT/HCPCS: 76705

== ENCOUNTER → 2022-01-03 | Outpatient (CLI) | payer MEDICARE, BC ==
--- NOTE | 2022-01-03 09:50 | NM ---
EXAMINATION TYPE: NM hepatobiliary w EF DATE OF EXAM: 01/03/2022 COMPARISON: NONE HISTORY: K80.10 calculus of gallbladder with cholecystitis TECHNIQUE: After the intravenous administration of 4.8 mCi Tc 99m Mebrofenin hepatobiliary scintigrap hy is performed. Immediate images post injection. FINDINGS: There is satisfactory initial accumulation of tracer by the liver. The gallbladder is visualized wit hin 28 minutes. The small bowel activity is noted within 14 minutes. At one hour 8 ounces of oral e nsure plus is given to mimic CCK and gallbladder ejection fraction is calculated at 59 %, in the norm al range. Therefore there is no scintigraphic evidence of cystic or common bile duct obstruction to suggest acute cholecystitis or gallbladder dyskinesia. IMPRESSION: Exam is within normal limits.
== END | disposition home or self-care (01) ==
LOC: RADNMMAIN 06:53
PROVIDERS: ATTEND Surgery Plastic and Reconstructive Surgery
DX: K80.10 Calculus of gallbladder with chronic cholecystitis without obstruction (principal)
CPT/HCPCS: 78226; A9537

== ENCOUNTER 2024-02-14 16:52 | Inpatient (IN) | payer MEDICARE, BC ==
[2024-02-14] MEDS ORDERED: hydrOXYzine pamoate 25 MG CAP PO PRN (17:50)
[2024-02-14] MEDS ORDERED: HYDROmorphone 0.5 MG/0.5 ML SYRINGE IVP PRN (17:50)
[2024-02-14] MEDS ORDERED: SENNOSIDES-DOCUSATE SODIUM 1 EACH TAB PO PRN (17:50)
[2024-02-14 18:27] LABS: Basophils # (A) 0.1 k/uL (0-0.2); Basophils % (A) 1 %; Eosinophils # (A) 0.4 k/uL (0-0.7); Eosinophils % (A) 5 %; HCT 43.1 % (39.0-53.0); Lymphocytes # (A) 1.1 k/uL (1.0-4.8); Lymphocytes % (A) 14 %; MCH 32.4 pg (25.0-35.0); MCHC 32.6 g/dL (31.0-37.0); MCV 99.6 fL (80.0-100.0); Mean Platelet Volume 7.3; Monocytes # (A) 0.4 k/uL (0-1.0); Monocytes % (A) 6 %; Neutrophils # (A) 5.3 k/uL (1.3-7.7); Neutrophils % (A) 71 %; Platelet Count 252 k/uL (150-450); RBC 4.33 m/uL (4.30-5.90); RDW 12.4 % (11.5-15.5); WBC 7.4 k/uL (3.8-10.6)
[2024-02-14 18:45] LABS: African American GFR (CKD) >90 (>60 ml/min/1.73 sqM); Anion Gap 7 mmol/L; Blood Urea Nitrogen 18 mg/dL (9-20); Calcium 8.7 mg/dL (8.4-10.2); Carbon Dioxide 23 mmol/L (22-30); Chloride 108 mmol/L (98-107); Glucose 99 mg/dL (74-99); Non-African American GFR(CKD) 88 (>60 ml/min/1.73 sqM); Sodium 138 mmol/L (137-145)
--- NOTE | 2024-02-15 04:40 | P.CONS ---
History of Present Illness - Reason for Consult Consult date: 02/14/24 Preoperative medical management - Chief Complaint Left patellar rupture - History of Present Illness 68-year-old male with hypertension Patient coming in for scheduled surgical correction of left knee injury. He reports that he was walking on a deck when accidentally missed a step and twisted his knee with over extension resulting in the snap knee and was found to have ruptured patellar tendon coming in for repair currently he is in an immobilizer, pain is well-tolerated and controlled. Denies any numbness or tingling in his feet. Patient denies any head injury or passing out Patient denies any cardiac history or history of strokes or congestive heart failure. At baseline patient is active involved in sports without limitations he denies any exertional dyspnea Patient does admit to tobacco smoking denies any illicit drugs or heavy alcohol review of systems Pertinent positives as noted in HPI. All other systems were reviewed and are negative on exam Constitutional: No acute distress, conversant, pleasant Eyes: Anicteric sclerae, moist conjunctiva, Pupils equal round reactive to light ENMT: NC/AT Oropharynx clear, no erythema, or exudates Neck: Supple, no masses, or JVD No carotid bruits No thyromegaly Lungs: Clear to auscultation Clear to percussion Normal respiratory effort, no accessory muscle use Cardiovascular: Heart regular in rate and rhythm, No murmurs, gallops, or rubs No peripheral edema Abdominal: Soft Nontender, no guarding, rebound or rigidity Abdomen moving with respiration Normoactive bowel sounds Extremities: No digital cyanosis No clubbing Pedal pulses intact and symmetrical Radial pulses intact and symmetrical No calf tenderness Psychiatric: Alert and oriented to person, place and time Appropriate affect fair judgement Neuro Muscles Strength 5/5 in bilateral upper and right lower extremity limited exam over left lower extremity secondary to immobilizer Sensation to light touch grossly present throughout Cranial nerves II-XII grossly intact Past Medical History Past Medical History: Hypertension, Prostate Disorder Additional Past Medical History / Comment(s): states nasal polyp, diverticulitis, small bowel blockage History of Any Multi-Drug Resistant Organisms: None Reported Past Surgical History: Bowel Resection Additional Past Surgical History / Comment(s): previous nasal polyps removed, Jaw sx with pin, colon resection d/t diverticulitis. Past Anesthesia/Blood Transfusion Reactions: No Reported Reaction Past Psychological History: No Psychological Hx Reported Additional Psychological History / Comment(s): Pt resides with his spouse. He is independent. Smoking Status: Former smoker Past Alcohol Use History: None Reported Additional Past Alcohol Use History / Comment(s): Pt started smoking in 1971 and quit in 1999 Past Drug Use History: None Reported - Past Family History Sister(s) Family Medical History: Cancer Additional Family Medical History / Comment(s): breast cancer Medications and Allergies Home Medications Medication Instructions Recorded Confirmed Type Tamsulosin [Flomax] 0.4 mg PO DAILY 10/12/19 02/14/24 History [place]-3 Fatty Acids/Fish Oil [Fish 1 cap PO DAILY 08/17/21 02/14/24 History Oil 1,000 mg Softgel] Finasteride [Proscar] 5 mg PO DAILY 02/14/24 02/14/24 History Losartan Potassium 50 mg PO DAILY 02/14/24 02/14/24 History Multivitamins, Thera [Multivitamin 1 tab PO DAILY 02/14/24 02/14/24 History (formulary)] Allergies Allergy/AdvReac Type Severity Reaction Status Date / Time grass pollen Allergy Dyspnea Verified 02/14/24 18:21 mold Allergy Dyspnea Verified 02/14/24 18:21 peanut Allergy Dyspnea Verified 02/14/24 18:21 pollen extracts Allergy Dyspnea Verified 02/14/24 18:21 shellfish derived [Shellfish] Allergy Dyspnea Verified 02/14/24 18:21 dust Allergy Dyspnea Uncoded 02/14/24 18:22 Physical Exam Vitals: Vital Signs Temp Pulse Resp BP Pulse Ox 02/14/24 18:13 71 18 145/64 96 02/14/24 17:09 98.0 F 76 18 146/83 95 Intake and Output 02/14/24 02/14/24 02/14/24 06:59 14:59 22:59 Intake Total 120 Balance 120 Intake: Oral 120 Other: Weight 74.843 kg Results CBC & Chem 7: 02/14/24 18:06 02/14/24 18:06 Labs: Abnormal Lab Results - Last 24 Hours (Table) 02/14/24 Range/Units 18:06 Chloride 108 H (98-107) mmol/L Assessment and Plan Assessment: patient is 68year old Male , presetned with left knee injury patient denies any recent history or symptoms of congestive heart failure, mycardial infarction, syncope, arrhythmia, palpitation, or exertional dyspnea. Patient denies any past medical history of stroke, CAD, CHF, CKD, or DM. Patient is functional at baseline at >4 METs he is able to participate in sports and chores around the house with no limitations Patient labs reviewed, EKG reviewed showed right bundle branch block which is unchanged compared to EKG from 2020 Patient is scheduled for orthopedic surgery to fix left knee patellar rupture. This is of moderate risk, however, patient has no medical risk factors from his past medical history. Patient can proceed to surgery with low-moderate but acceptable perioperative cardiovascular risk factors. This has been explained to the patient , all questions answered, patient verbalized understanding and agreement. Blood work reviewed White count 7 hemoglobin 14 Sodium 138 potassium 4 BUN 18 creatinine 0.87 unremarkable Hypertension Continue to monitor Resume losartan the day after surgery BPH Continue tamsulosin the night of surgery Continue finasteride Left patellar fracture Management per orthopedic team Patient stable overall from medical standpoint Thank you for this consultation
[2024-02-15] MEDS: FINASTERIDE 5 MG TAB PO SCH (08:16)
[2024-02-15] MEDS ORDERED: KETOROLAC 15 MG/ML 1 ML VIAL ONE (09:26)
[2024-02-15] MEDS ORDERED: MIDAZOLAM 2 MG/2 ML VIAL ONE (09:26)
[2024-02-15] MEDS ORDERED: fentaNYL (PF) 50 MCG/ML 2 ML AMP ONE (09:26)
[2024-02-15] MEDS ORDERED: HYDROmorphone (PF) 1 MG/ML ONE (09:26)
[2024-02-15] MEDS ORDERED: PROPOFOL 10 MG/ML 20 ML VIAL IV ONE (09:26)
[2024-02-15] MEDS ORDERED: LIDOCAINE 1% INJ 10MG/ML (20 ML MDV) ONE (09:26)
[2024-02-15] MEDS: LACTATED RINGERS 1,000 ML IV ONE (09:30)
[2024-02-15] MEDS: ceFAZolin 1,000 MG in SODIUM CHLORIDE 0.9% 1,000 ML IRRIGATION ONE (10:03)
[2024-02-15] MEDS ORDERED: NALOXONE 0.4 MG/ML 1 ML VIAL IV PRN (11:01)
[2024-02-15] MEDS ORDERED: HYDROmorphone 0.5 MG/0.5 ML SYRINGE IVP PRN (11:01)
[2024-02-15] MEDS ORDERED: MAGNESIUM HYDROXIDE 2,400 MG/30 ML CUP PO PRN (11:01)
--- NOTE | 2024-02-15 11:01 | P.OP ---
Date of Procedure: 02/15/24 Preoperative Diagnosis: Acute left patellar tendon rupture Postoperative Diagnosis: Same Procedure(s) Performed: Left patellar tendon repair Anesthesia: STEVIE Surgeon: Juan Zhou Brickmason Helper #1: Delfin Fisher Estimated Blood Loss (ml): 50 Pathology: none sent Condition: stable Disposition: PACU Indications for Procedure: The patient is a 68-year-old male who presents after falling injuring his left knee at home. Upon evaluation he was noted to have rupture of the patellar tendon off the patella. A discussion of the risks and benefits of operative intervention was made with the patient. He opted to proceed. Operative risks include infection, neurovascular injury, development of blood clots, possible tendon rerupture and need for subsequent procedures was discussed. Informed consent was obtained. Operative Findings: As below Description of Procedure: The patient was brought the operating room, and after induction of general anesthesia the lower extremity was prepped and draped in normal fashion. The tourniquet was inflated to 270 mmHg. A midline longitudinal incision was then made from the superior pole patella to the medial aspect of the tibial tubercle. Skin and subcutaneous tissues were divided sharply. Electrocautery was used for hemostasis. The prepatellar bursa was opened. The patellar tendon rupture was then evident. This was ruptured off the inferior pole of patella. The medial lateral borders of the tendon were clearly defined. 2 rows of #5 Ethibond suture was then placed in a Krakw fashion. The inferior pole patella was prepared debriding the soft tissue down to a bleeding bony surface. A jorge was used to lightly decorticate this. 3 drill holes were then made in the patella for passage of the sutures. The sutures were then passed and the tendon was then reapproximated to the inferior pole of the patella. The medial and lateral retinaculum was closed with #1 Vicryl sutures. The peritenon was closed with running 2-0 Vicryl suture. The subcutaneous tissues reapproximated interrupted 2-0 Vicryl sutures. The skin was reapproximated 3-0 subcuticular strata fix suture. Skin tape and adhesive was applied. A sterile dressing was applied in addition to a knee immobilizer. The tourniquet was deflated with approximately 1 hour total tourniquet time. Blood loss was estimated at 50 cc. No complications were incurred. Sponge and needle counts were correct at the end of the case. The patient was awoken from general anesthesia and transported to recovery room in good condition. Delfin HOLLIDAY assisted during the major components of the case to include positioning, exposure, repair, and closure.
[2024-02-15] MEDS: HYDROmorphone 0.5 MG/0.5 ML SYRINGE IVP PRN (11:50)
--- NOTE | 2024-02-15 13:13 | P.PN ---
Subjective Progress Note Date: 02/15/24 No new complaints. Gen: In NAD, non-toxic HEENT: normocephalic, atraumatic, hearing acuity is intant, mucous membranes moist CVS: perfusing all extremities well, no pitting edema, Respiratory: symmetric chest expansion, no accessory muscle use, GI: soft, NTTP, ND, : no suprapubic tenderness, no CVA tenderness MSK/Derm: no rashes, cyanosis Neuro: CN II-XII intact, no motor weakness, Psych: cooperative, euthymic mood, judgment and insight is intact Hospital course: patient is 68year old Male , presetned with left knee injury patient denies any recent history or symptoms of congestive heart failure, mycardial infarction, syncope, arrhythmia, palpitation, or exertional dyspnea. Patient denies any past medical history of stroke, CAD, CHF, CKD, or DM. Patient is functional at baseline at >4 METs he is able to participate in sports and chores around the house with no limitations Patient labs reviewed, EKG reviewed showed right bundle branch block which is unchanged compared to EKG from 2019 Patient is scheduled for orthopedic surgery to fix left knee patellar rupture. This is of moderate risk, however, patient has no medical risk factors from his past medical history. Patient can proceed to surgery with low-moderate but acceptable perioperative cardiovascular risk factors. This has been explained to the patient , all questions answered, patient verbalized understanding and agreement. Blood work reviewed White count 7 hemoglobin 14 Sodium 138 potassium 4 BUN 18 creatinine 0.87 unremarkable Assessment/plan: Hypertension Continue to monitor Resume losartan the day after surgery BPH Continue tamsulosin the night of surgery Continue finasteride Left patellar fracture Management per orthopedic team Patient stable overall from medical standpoint Thank you for this consultation Objective - Vital Signs Vital signs: Vital Signs Temp 97.3 F L 02/15/24 11:46 Pulse 56 L 02/15/24 11:46 Resp 18 02/15/24 11:46 BP 132/78 02/15/24 11:46 Pulse Ox 97 02/15/24 11:46 FiO2 Intake & Output 02/14/24 02/15/24 02/15/24 18:59 06:59 18:59 Intake Total 120 501 Output Total 200 50 Balance -80 451 Weight 74.843 kg Intake: IV 501 Oral 120 Output: Urine 200 Estimated Blood Loss 50 Other: Voiding Method Urinal - Labs CBC & Chem 7: 02/14/24 18:06 02/14/24 18:06 Labs: Abnormal Lab Results - Last 24 Hours (Table) 02/14/24 Range/Units 18:06 Chloride 108 H (98-107) mmol/L
[2024-02-15] MEDS: HYDROcodone/APAP 5-325MG 1 EACH TAB PO PRN (16:23)
[2024-02-15] MEDS: TAMSULOSIN 0.4 MG CAP.ER.24H PO SCH (20:57)
[2024-02-16] MEDS: HYDROcodone/APAP 7.5-325MG 1 EACH TAB PO PRN (05:41)
[2024-02-16] MEDS: LOSARTAN 50 MG TAB PO SCH (07:55)
[2024-02-16] MEDS: RIVAROXABAN 10 MG TAB PO SCH (07:55)
[2024-02-16 09:20] LABS: Basophils # (A) 0.03 X 10*3/uL (0.00-0.10); Basophils % (A) 0.3 %; Eosinophils # (A) 0.34 X 10*3/uL (0.04-0.35); Eosinophils % (A) 3.8 %; HCT 39.8 % (39.6-50.0); HGB 13.3 g/dL (13.0-17.0); Lymphocytes % (A) 11.1 %; MCH 31.8 pg (27.0-32.0); MCHC 33.4 g/dL (32.0-37.0); MCV 95.2 FL (80.0-97.0); Mean Platelet Volume 9.5 FL (9.5-12.2); Monocytes # (A) 0.95 X 10*3/uL (0.20-1.00); Monocytes % (A) 10.5 %; NRBC Per 100 WBC 0 X 10*3/uL (0.00-0.01); Neutrophils % (A) 74.1 %; Platelet Count 214 X 10*3/uL (140-440); RBC 4.18 X 10*6/uL (4.40-5.60); RDW 12.2 % (11.5-14.5); WBC 9.04 X 10*3/uL (4.50-10.00)
--- NOTE | 2024-02-16 11:49 | P.PN ---
Subjective Progress Note Date: 02/16/24 Principal diagnosis: Acute left patellar tendon rupture Patient was seen at bedside this morning lying the semirecumbent position with a hinged knee brace on left lower extremity locked in full extension and a stressing present over the left knee. Patient says he is in a moderate amount of pain currently. Patient is hoping to work with PT/OT later today. Patient is hoping to stay overnight for additional pain control and therapy. Patient says he has urinated since surgery yesterday. Patient says he has not had bowel movement, however, patient says he has been passing gas. Patient denies chest pain, fever, shortness of breath, nausea, vomiting, change in vision, loss of bowel/bladder control. Objective - Vital Signs Vital signs: Vital Signs Temp 97.9 F 02/16/24 07:34 Pulse 86 02/16/24 07:34 Resp 16 02/16/24 07:34 BP 155/68 02/16/24 07:34 Pulse Ox 94 L 02/16/24 07:34 FiO2 Intake & Output 02/15/24 02/16/24 02/16/24 18:59 06:59 18:59 Intake Total 501 Output Total 50 Balance 451 Intake: IV 501 Output: Estimated Blood Loss 50 Other: Voiding Method Urinal Toilet # Voids 2 3 - Exam Left knee: Incision is clean, dry, and intact. Hinged knee brace locked in full extension of her left lower extremity. The exofin fusion tape and Enrike wrap is in good condition. There is minimal soft tissue swelling and ecchymosis surrounding the medial and lateral aspects of the incision. Calf is soft, no tenderness with palpation. Plantar flexion, dorsiflexion, EHL, FHL are intact. Sensory exam to light touch throughout the extremity is intact, dorsal pedis pulses 2+. - Labs CBC & Chem 7: 02/16/24 04:17 02/14/24 18:06 Labs: Abnormal Lab Results - Last 24 Hours (Table) 02/16/24 Range/Units 04:17 RBC 4.18 L (4.40-5.60) X 10*6/uL Assessment and Plan Assessment: 1. Acute left patellar tendon rupture -postop day 1 status post Left patellar tendon repair Plan: 1. Acute left patellar tendon rupture - Left patellar tendon repair performed yesterday, 02/15/2024. Patient stable at bedside this morning with IROM hinged knee brace locked in full extension over LLE. Patient may weight- bear as tolerated with walker/crutches. Pain medication as needed. We will keep patient on Saturday for additional pain control and eval by PT/OT. Plan for discharge home tomorrow. 2. Appreciate medical management 3. Pain management - [place]; Dilaudid 4. DVT prophylaxis - Xarelto 5. GI prophylaxis - senna; milk of mag 6. PT/OT - weightbearing as tolerated with walker/crutches and brace on LLE in full extension all times. 7. Encourage incentive spirometer use 8. Discharge planning - plan for discharge home tomorrow Time with Patient: Less than 30
--- NOTE | 2024-02-16 11:54 | P.PN ---
Subjective Progress Note Date: 02/16/24 No new complaints. Gen: In NAD, non-toxic HEENT: normocephalic, atraumatic, hearing acuity is intant, mucous membranes moist CVS: perfusing all extremities well, no pitting edema, Respiratory: symmetric chest expansion, no accessory muscle use, GI: soft, NTTP, ND, : no suprapubic tenderness, no CVA tenderness MSK/Derm: no rashes, cyanosis Neuro: CN II-XII intact, no motor weakness, Psych: cooperative, euthymic mood, judgment and insight is intact Hospital course: patient is 68year old Male , presetned with left knee injury patient denies any recent history or symptoms of congestive heart failure, mycardial infarction, syncope, arrhythmia, palpitation, or exertional dyspnea. Patient denies any past medical history of stroke, CAD, CHF, CKD, or DM. Patient is functional at baseline at >4 METs he is able to participate in sports and chores around the house with no limitations Patient labs reviewed, EKG reviewed showed right bundle branch block which is unchanged compared to EKG from 2019 Patient is scheduled for orthopedic surgery to fix left knee patellar rupture. This is of moderate risk, however, patient has no medical risk factors from his past medical history. Patient can proceed to surgery with low-moderate but acceptable perioperative cardiovascular risk factors. This has been explained to the patient , all questions answered, patient verbalized understanding and agreement. Blood work reviewed White count 7 hemoglobin 14 Sodium 138 potassium 4 BUN 18 creatinine 0.87 unremarkable Assessment/plan: Hypertension Continue to monitor Resume losartan the day after surgery BPH Continue tamsulosin the night of surgery Continue finasteride Left patellar fracture Management per orthopedic team Patient stable overall from medical standpoint Thank you for this consultation Objective - Vital Signs Vital signs: Vital Signs Temp 97.9 F 02/16/24 07:34 Pulse 86 02/16/24 07:34 Resp 16 02/16/24 07:34 BP 155/68 02/16/24 07:34 Pulse Ox 94 L 02/16/24 07:34 FiO2 Intake & Output 02/15/24 02/16/24 02/16/24 18:59 06:59 18:59 Intake Total 501 Output Total 50 Balance 451 Intake: IV 501 Output: Estimated Blood Loss 50 Other: Voiding Method Urinal Toilet # Voids 2 3 - Labs CBC & Chem 7: 02/16/24 04:17 02/14/24 18:06 Labs: Abnormal Lab Results - Last 24 Hours (Table) 02/16/24 Range/Units 04:17 RBC 4.18 L (4.40-5.60) X 10*6/uL
[2024-02-17] MEDS: MULTIVITAMINS, THERA 1 EACH TAB PO SCH (08:31)
[2024-02-17 08:32] VITALS: BP 130/70; PULSE 89; RESP 17; TEMP 97.8
[2024-02-17] MEDS ORDERED: NON FORMULARY DRUG (Omega-3 Fatty Acids/Fish Oil [Fish Oil 1,000 Mg Softgel] 1 EACH Capsul PO SCH (09:00)
--- NOTE | 2024-02-17 12:29 | P.DS ---
Providers Date of admission: 02/14/24 16:52 Expected date of discharge: 02/17/24 Attending physician: Juan Zhou Consults: 02/14/24 17:52 Consult Physician Routine Consulting Provider: Bhargavi James Consult Reason/Comments: Medical Management - left patellar tendon tear Do you want consulting provider notified?: Yes [facility] Hospital Course: Date of admission: 02/14/2024 Date of discharge: 02/17/2024 Admission diagnosis: Left patellar tendon rupture Discharge diagnosis: Same Attending physician: Dr. Zhou Surgical procedures: Left knee patellar tendon repair Brief history: Patient is a 68-year-old male with a history of left patellar tendon rupture. At this point patient has failed conservative treatment measures and has opted to proceed with a elective left knee patellar tendon repair. Hospital course: Details of patient's surgery can be found in operative report. Patient tolerated the procedure well and was subsequently transported to orthopedic floor. Patient's orthopeidc and medical care was provided daily. Patient had daily laboratory tests performed for evaluation of overall blood counts. Patient had daily physical therapy to include strengthening range of motion as well as education with walker ambulation. Patient was treated with Xarelto for their postoperative DVT prophylaxis during their inpatient stay. Patient was noted to have a relatively uneventful postoperative course. Patient reported satisfactory pain control with oral pain medications by postoperative day 2. Patient showed satisfactory progress with physical therapy. Patient moved steadily through the program and had no difficulty meeting the goals by postoperative day 2. Given patient's otherwise satisfactory course and having met physical therapy goals, plan is to discharge patient home with health services on postoperative day 2. Discharge condition/disposition: Patient will be discharged home with health services in stable condition. Discharge medications: Instructions are given on resumption of patient's normal daily medications per primary care recommendation, in addition patient will be prescribed [place]; senna; Eliquis 2.5 mg twice daily x 2 weeks. Discharge instructions: 1. Wound care and infection precautions, keep incision dry and covered while showering, no lotions, creams, moisturizers. No soaking, tubs, pools, hottubs. Do not scrub over the incision. 2. Weight-bear as tolerated while in full extension knee brace with walker / crutches until follow-up. 3. Ice and elevate when necessary. Do not exceed 20 minutes per hour with ice pack. 4. Utilize compression sleeve until seen at first follow up appointment. 5. Visiting nursing care. 6. Home physical therapy 7. Pain meds and anticoagulants per prescription. 8. Pain medication has potential to cause constipation. Increase oral fluid and fiber intake. Contact primary care provider if you have not had a bowel movement within 48 hours after discharge 9. No anti-inflammatory medication until discussed at first post operative visit, this including Motrin, Aleve, Mobic, Diclofenac. 10. Follow up in office at [address] Zhou. 11. Follow up with your primary care doctor 7-10 days after discharge. 12. Contact [facility] with any questions, . Assessment: Left patellar tendon rupture Procedures: Left knee patellar tendon repair Patient Condition at Discharge: Good Plan - Discharge Summary Discharge Rx Participant: Yes New Discharge Prescriptions: New Apixaban [Eliquis] 2.5 mg PO BID #60 tab HYDROcodone/APAP 7.5-325MG [[place] 7.5-325] 1 tab PO Q6HR PRN #28 tab PRN Reason: Pain Sennosides/Docusate Sodium [Senna Plus 8.6-50 mg Softgel] 1 each PO DAILY #20 capsule Continue Tamsulosin [Flomax] 0.4 mg PO DAILY [place]-3 Fatty Acids/Fish Oil [Fish Oil 1,000 mg Softgel] 1 cap PO DAILY Losartan Potassium 50 mg PO DAILY Finasteride [Proscar] 5 mg PO DAILY Multivitamins, Thera [Multivitamin (formulary)] 1 tab PO DAILY Discharge Medication List Tamsulosin [Flomax] 0.4 mg PO DAILY 10/12/19 [History] [place]-3 Fatty Acids/Fish Oil [Fish Oil 1,000 mg Softgel] 1 cap PO DAILY 08/17/21 [History] Finasteride [Proscar] 5 mg PO DAILY 02/14/24 [History] Losartan Potassium 50 mg PO DAILY 02/14/24 [History] Multivitamins, Thera [Multivitamin (formulary)] 1 tab PO DAILY 02/14/24 [History ] Apixaban [Eliquis] 2.5 mg PO BID #60 tab 02/17/24 [Rx] HYDROcodone/APAP 7.5-325MG [[place] 7.5-325] 1 tab PO Q6HR PRN #28 tab 02/17/24 [Rx] Sennosides/Docusate Sodium [Senna Plus 8.6-50 mg Softgel] 1 each PO DAILY #20 capsule 02/17/24 [Rx] Follow up Appointment(s)/Referral(s): Juan Zhou MD [STAFF PHYSICIAN] - 1 Week [facility] Visiting Nurse, [NON-STAFF] - 1-2 Days ([facility] will call you to schedule your in home nursing and physical therapy visits. ) Activity/Diet/Wound Care/Special Instructions: Patient requires a bedside commode due to being room confined from a left patellar tendon rupture. Discharge instructions: 1. Wound care and infection precautions, keep incision dry and covered while showering, no lotions, creams, moisturizers. No soaking, tubs, pools, hottubs. Do not scrub over the incision. 2. Weight-bear as tolerated while in full extension knee brace with walker / crutches until follow-up. 3. Ice and elevate when necessary. Do not exceed 20 minutes per hour with ice pack. 4. Utilize compression sleeve until seen at first follow up appointment. 5. Visiting nursing care. 6. Home physical therapy 7. Pain meds and anticoagulants per prescription. 8. Pain medication has potential to cause constipation. Increase oral fluid and fiber intake. Contact primary care provider if you have not had a bowel movement within 48 hours after discharge 9. No anti-inflammatory medication until discussed at first post operative visit, this including Motrin, Aleve, Mobic, Diclofenac. 10. Follow up in office at [address] Zhou. 11. Follow up with your primary care doctor 7-10 days after discharge. 12. Contact [facility] with any questions, . Discharge Disposition: HOME WITH HOME HEALTH SERVICES
--- NOTE | 2024-02-17 12:31 | P.PN ---
Subjective Progress Note Date: 02/17/24 Principal diagnosis: Acute left patellar tendon rupture Patient was seen at bedside this morning lying the semirecumbent position with a hinged knee brace on left lower extremity locked in full extension and a dressing present over the left knee. Patient says he is in fair amount of pain currently. Patient says he worked with therapy already this morning. Patient is looking forward to going home later today. Patient says he has not had bowel movement, however, patient says he has been passing gas. Patient denies chest pain, fever, shortness of breath, nausea, vomiting, change in vision, loss of bowel/bladder control. Objective - Vital Signs Vital signs: Vital Signs Temp 97.8 F 02/17/24 07:54 Pulse 89 02/17/24 07:54 Resp 17 02/17/24 07:54 BP 130/70 02/17/24 07:54 Pulse Ox 96 02/17/24 07:54 FiO2 Intake & Output 02/16/24 02/17/24 02/17/24 18:59 06:59 18:59 Output Total 400 300 Balance -400 -300 Output: Urine 400 300 Other: Voiding Method Toilet Toilet Toilet # Voids 2 2 # Bowel Movements 1 - Exam Left knee: Incision is clean, dry, and intact. Hinged knee brace locked in full extension of her left lower extremity. The exofin fusion tape and Enrike wrap is in good condition. There is minimal soft tissue swelling and ecchymosis surrounding the medial and lateral aspects of the incision. Calf is soft, no tenderness with palpation. Plantar flexion, dorsiflexion, EHL, FHL are intact. Sensory exam to light touch throughout the extremity is intact, dorsal pedis pulses 2+. - Labs CBC & Chem 7: 02/16/24 04:17 02/16/24 16:50 Assessment and Plan Assessment: 1. Acute left patellar tendon rupture -postop day 2 status post Left patellar tendon repair Plan: 1. Acute left patellar tendon rupture - Left patellar tendon repair performed 02/15/2024. Patient stable at bedside this morning with IROM hinged knee brace locked in full extension over LLE. Patient may weight-bear as tolerated with walker/crutches. Pain medication as needed. Discharge home today with health services 2. Appreciate medical management 3. Pain management - [place]; Dilaudid 4. DVT prophylaxis - Xarelto in hospital. Going home with Eliquis 2.5 mg twice daily x 2 weeks 5. GI prophylaxis - senna; milk of mag 6. PT/OT - weightbearing as tolerated with walker/crutches and brace on LLE in full extension all times. 7. Encourage incentive spirometer use 8. Discharge planning -discharge home today with health services Time with Patient: Less than 30
--- NOTE | 2024-02-17 12:37 | P.PN ---
Subjective Progress Note Date: 02/17/24 No new complaints. Gen: In NAD, non-toxic HEENT: normocephalic, atraumatic, hearing acuity is intant, mucous membranes moist CVS: perfusing all extremities well, no pitting edema, Respiratory: symmetric chest expansion, no accessory muscle use, GI: soft, NTTP, ND, : no suprapubic tenderness, no CVA tenderness MSK/Derm: no rashes, cyanosis Neuro: CN II-XII intact, no motor weakness, Psych: cooperative, euthymic mood, judgment and insight is intact Hospital course: patient is 68year old Male , presetned with left knee injury patient denies any recent history or symptoms of congestive heart failure, mycardial infarction, syncope, arrhythmia, palpitation, or exertional dyspnea. Patient denies any past medical history of stroke, CAD, CHF, CKD, or DM. Patient is functional at baseline at >4 METs he is able to participate in sports and chores around the house with no limitations Patient labs reviewed, EKG reviewed showed right bundle branch block which is unchanged compared to EKG from 2019 Patient is scheduled for orthopedic surgery to fix left knee patellar rupture. This is of moderate risk, however, patient has no medical risk factors from his past medical history. Patient can proceed to surgery with low-moderate but acceptable perioperative cardiovascular risk factors. This has been explained to the patient , all questions answered, patient verbalized understanding and agreement. Blood work reviewed White count 7 hemoglobin 14 Sodium 138 potassium 4 BUN 18 creatinine 0.87 unremarkable Assessment/plan: Hypertension Continue to monitor Resume losartan the day after surgery BPH Continue tamsulosin the night of surgery Continue finasteride Left patellar fracture Management per orthopedic team Patient stable overall from medical standpoint Thank you for this consultation Objective - Vital Signs Vital signs: Vital Signs Temp 97.8 F 02/17/24 07:54 Pulse 89 02/17/24 07:54 Resp 17 02/17/24 07:54 BP 130/70 02/17/24 07:54 Pulse Ox 96 02/17/24 07:54 FiO2 Intake & Output 02/16/24 02/17/24 02/17/24 18:59 06:59 18:59 Output Total 400 300 Balance -400 -300 Output: Urine 400 300 Other: Voiding Method Toilet Toilet Toilet # Voids 2 2 # Bowel Movements 1 - Labs CBC & Chem 7: 02/16/24 04:17 02/16/24 16:50
--- NOTE | 2024-02-17 16:20 | US ---
EXAMINATION TYPE: US venous doppler duplex LE LT DATE OF EXAM: 02/17/2024 3:48 PM COMPARISON: NONE CLINICAL INDICATION: Male, 68 years old with history of Rule out DVT.; surgical repair of patellar te ndon SIDE PERFORMED: Left TECHNIQUE: The lower extremity deep venous system is examined utilizing real time linear array sonog mila with graded compression, doppler sonography and color-flow sonography. VESSELS IMAGED: Common Femoral Vein Deep Femoral Vein Greater Saphenous Vein * Femoral Vein Popliteal Vein Small Saphenous Vein * Proximal Calf Veins (* superficial vessels) Left Leg: Negative for DVT IMPRESSION: Grayscale, color doppler, spectral doppler imaging performed of the deep veins of the lo wer extremities. There is normal flow, compressibility, vascular waveforms.
== END 2024-02-17 16:53 | disposition home health service (06) | DRG 502 ==
LOC: 4SSUR 16:52
PROVIDERS: ADMIT Orthopaedic Surgery; ATTEND Orthopaedic Surgery
PROC: 0LQR0ZZ Repair Left Knee Tendon, Open Approach (ICD-10-PCS; principal; 2024-02-15 09:22)
DX: S76.112A Strain of left quadriceps muscle, fascia and tendon, initial encounter (principal); I10 Essential (primary) hypertension; I45.10 Unspecified right bundle-branch block; N40.0 Benign prostatic hyperplasia without lower urinary tract symptoms; W19.XXXA Unspecified fall, initial encounter; Z79.899 Other long term (current) drug therapy; Z87.891 Personal history of nicotine dependence; X50.1XXA Overexertion from prolonged static or awkward postures, initial encounter
CPT/HCPCS: 80048; 84132; 85025; 93005

== ENCOUNTER → 2024-09-25 | Outpatient (CLI) | payer MEDICARE, BC ==
--- NOTE | 2024-09-28 08:32 | MR ---
EXAMINATION TYPE: MR Prostate wo/w con DATE OF EXAM: 09/25/2024 COMPARISON: None. IMAGE QUALITY: . INDICATION: Elevated PSA . History of benign biopsy 2018 ago. PSA: 8.32 ng/ml on August 2024 TECHNIQUE: Examination was performed using a 3T MRI without an endorectal coil. Multiparametric imaging was perf ormed with T2 mutliplanar sequences, axial diffusion weighted imaging and dynamic contrast enhanced i maging, utilizing 7 mL intravenous Gadobutrol gadolinium contrast. FINDINGS: PROSTATE VOLUME: 4.8 cm SI x 4.6 cm AP x 5.7 cm LR Vol= 65.9 cc PSA DENSITY: 0.13 ng/ml/cc Enlarged prostate consistent with BPH is present. Heterogeneous enlarged transitional zone with bilat eral nodules. No suspicious hypointense areas. No areas of increased signal on diffusion-weighted maira ging. Site 1: Assessment Category:4 Size: 9 mm Location(s):left mid to apical posterior ; peripheral zone Lesion of focal hypointensity on ADC and likely increased signal in DWI imaging seen best image 60 se lauri 802 showing focal postcontrast enhancement Urinary bladder shows mild wall thickening most prominent along the left aspect. There is nonspecific 8 mm lymph node adjacent to the left aspect of the bladder axial image 27 series 501. No destructive osseous lesions are seen. IMPRESSION: Enlarged prostate consistent with BPH. Suspicious area identified left peripheral zone. Advise imaging guided targeted sampling. Highest Assessment Category: 4 MRI Stage: T0 N0 M0 based on review of pelvic images. False negative rates for MRI range from 5-20% depending on risk profile. Assessment Categories: 1 ? Very low (clinically significant cancer is highly unlikely to be present) 2 ? Low (clinically significant cancer is unlikely to be present) 3 ? Intermediate (the presence of clinically significant cancer is equivocal) 4 ? High (clinically significant cancer is likely to be present) 5 ? Very high (clinically significant cancer is highly likely to be present) [facility], , 09/28/2024 8:29 AM
== END | disposition home or self-care (01) ==
LOC: RADMRIMAIN 06:54
PROVIDERS: ATTEND Urology
DX: R97.20 Elevated prostate specific antigen [PSA] (principal); N40.0 Benign prostatic hyperplasia without lower urinary tract symptoms
CPT/HCPCS: 72197; A9585

== ENCOUNTER 2024-11-03 11:45 | Day surgery (SDC) | payer MEDICARE, BC ==
--- NOTE | 2024-10-22 12:31 | P.HPIHPCON ---
History of Present Illness H&P Date: 10/22/24 Chief Complaint: Elevated PSA This is a 69-year-old male with history of elevated PSA at 8.3. Underwent a prostate MRI that showed evidence of a PI-RADS 4 lesion along the left mid to apical area of the prostate. I reviewed the MRI results with him in details. Discussed with him I do recommend proceeding with an MRI fusion biopsy of the prostate. He is aware of the risk which includes but not limited to bleeding, infection. He understood all the risk and agreed to proceed Consent for Procedure: I have explained the operation/procedure to the patient, including the risks, benefits, side effects, alternative therapies (including not receiving the proposed treatment or service), the likelihood of the patient achieving his/her goals, and potential recuperation problems for the procedure/sedation/analgesia, as well as any blood products, if indicated. I also explained to the patient the risks, benefits and side effects of the alternatives, as well as the risks related to not receiving the proposed procedure, care, treatment, or services. Past Medical History Past Medical History: Hypertension, Prostate Disorder Additional Past Medical History / Comment(s): states nasal polyp, diverticulitis, small bowel blockage History of Any Multi-Drug Resistant Organisms: None Reported Past Surgical History: Bowel Resection Additional Past Surgical History / Comment(s): previous nasal polyps removed, Jaw sx with pin, colon resection d/t diverticulitis. Past Anesthesia/Blood Transfusion Reactions: No Reported Reaction Past Psychological History: No Psychological Hx Reported Additional Psychological History / Comment(s): Pt resides with his spouse. He is independent. Smoking Status: Former smoker Past Alcohol Use History: None Reported Additional Past Alcohol Use History / Comment(s): Pt started smoking in 1971 and quit in 1999 Past Drug Use History: None Reported - Past Family History Sister(s) Family Medical History: Cancer Additional Family Medical History / Comment(s): breast cancer Medications and Allergies Home Medications Medication Instructions Recorded Confirmed Type Tamsulosin [Flomax] 0.4 mg PO DAILY 10/12/19 02/14/24 History [place]-3 Fatty Acids/Fish Oil [Fish 1 cap PO DAILY 08/17/21 02/14/24 History Oil 1,000 mg Softgel] Finasteride [Proscar] 5 mg PO DAILY 02/14/24 02/14/24 History Losartan Potassium 50 mg PO DAILY 02/14/24 02/14/24 History Multivitamins, Thera [Multivitamin 1 tab PO DAILY 02/14/24 02/14/24 History (formulary)] Apixaban [Eliquis] 2.5 mg PO BID #60 tab 02/17/24 Rx HYDROcodone/APAP 7.5-325MG [[place] 1 tab PO Q6HR PRN #28 tab 02/17/24 Rx 7.5-325] Sennosides/Docusate Sodium [Senna 1 each PO DAILY #20 capsule 02/17/24 Rx Plus 8.6-50 mg Softgel] Allergies Allergy/AdvReac Type Severity Reaction Status Date / Time grass pollen Allergy Dyspnea Verified 02/14/24 18:21 mold Allergy Dyspnea Verified 02/14/24 18:21 peanut Allergy Dyspnea Verified 02/14/24 18:21 pollen extracts Allergy Dyspnea Verified 02/14/24 18:21 shellfish derived [Shellfish] Allergy Dyspnea Verified 02/14/24 18:21 dust Allergy Dyspnea Uncoded 02/14/24 18:22 Surgical - Exam - General no distress, no pain - Eyes normal ocular movement, no pale - ENT normal nares, normal mucosa - Respiratory normal expansion, normal respiratory effort - Abdomen Abdomen: soft, non tender Assessment and Plan Assessment: OR for MRI fusion biopsy of the prostate
[~2024-11-03 11:45] MED LIST changes: -ACETAMINOPHEN TAB 500 MG TAB PO PRN; -DEXAMETHASONE SOD PHOSPHATE 4 MG/ML 1 ML VIAL IV ONE; -GABAPENTIN 300 MG CAP PO PRN; -HEPARIN SODIUM,PORCINE/PF 5,000 UNIT/0.5 ML SYRINGE SQ PRN; -HYDROmorphone 0.5 MG/0.5 ML SYRINGE IVP PRN; -LACTATED RINGERS 1,000 ML IV SCH; -MELOXICAM 7.5 MG TAB PO PRN; -ONDANSETRON 4 MG/2 ML VIAL IVP ONE; -SCOPOLAMINE 1.5MG/72HR PATCH TRANSDERM ONE; -TAMSULOSIN 0.4 MG CAP.ER.24H PO PRN
[2024-11-03] MEDS: IV FLUID CONTINUATION 1,000 ML IV ONE (12:22)
[2024-11-03] MEDS: LACTATED RINGERS 1,000 ML IV SCH (12:51)
[2024-11-03 12:56] VITALS: TEMP 97.5
[2024-11-03] MEDS: GENTAMICIN 40 MG/ML 2 ML VIAL IM PRN (13:22)
[2024-11-03] MEDS ORDERED: fentaNYL (PF) 50 MCG/ML 2 ML AMP ONE (14:02)
[2024-11-03] MEDS ORDERED: PROPOFOL 10 MG/ML 20 ML VIAL IV ONE (14:02)
[2024-11-03] MEDS ORDERED: LIDOCAINE 1% INJ 10MG/ML (20 ML MDV) ONE (14:02)
--- NOTE | 2024-11-03 14:27 | P.OP ---
Date of Procedure: 11/03/24 Preoperative Diagnosis: Elevated PSA level Postoperative Diagnosis: Same Procedure(s) Performed: MRI fusion biopsies of the prostate Anesthesia: MAC Surgeon: Shaun Carreon Estimated Blood Loss (ml): 5 IV fluids (ml): 200 Pathology: other (Prostate biopsies) Condition: stable Disposition: PACU Indications for Procedure: This is a 69-year-old male with history of elevated PSA at 8.3. Underwent a prostate MRI that showed evidence of a PI-RADS 4 lesion along the left mid to apical area of the prostate. He now comes for MRI fusion biopsies of the prostate. Operative Findings: Biopsies obtained from target lesion as well as template biopsies. Description of Procedure: The patient was taken to the operating room and placed in the left lateral decubitus position. SHAYNE revealed the prostate to be mildly enlarged but smooth. The [employer] transrectal ultrasound probe was placed intrarectally. It was then placed within the stand of the [employer] MRI/TRUS Fusion for Prostate Biopsy system. The prostate was imaged in both the axial and sagittal planes, revealing a prostate volume of 68 mL. Using the Biopty gun, 3 biopsies were obtained from the left mid peripheral zone target lesion. The remaining 12 biopsies of the peripheral zone were obtained utilizing a standard template. Once the procedure was completed, the ultrasound probe was removed. The patient tolerated the procedure well was taken to the recovery room stable condition.
[2024-11-03 14:41] VITALS: RESP 16
[2024-11-03 14:57] VITALS: BP 124/71; PULSE 57
== END 2024-11-03 15:15 | disposition home or self-care (01) ==
LOC: OR 11:45
PROVIDERS: ATTEND Urology
DX: N40.0 Benign prostatic hyperplasia without lower urinary tract symptoms (principal); K21.9 Gastro-esophageal reflux disease without esophagitis; I10 Essential (primary) hypertension; Z87.891 Personal history of nicotine dependence; Z90.79 Acquired absence of other genital organ(s); Z80.3 Family history of malignant neoplasm of breast; Z79.01 Long term (current) use of anticoagulants; Z79.899 Other long term (current) drug therapy
CPT/HCPCS: 72195; 55700; 88305; J1580; J2003; J3010; J2704

== ENCOUNTER → 2024-12-11 | Outpatient (CLI) | payer MEDICARE, BC ==
--- NOTE | 2024-12-12 19:51 | PE ---
EXAMINATION TYPE: PET CT fusion skull to thigh DATE OF EXAM: 12/11/2024 CLINICAL INDICATION:Male, 69 years old with history of C61 prostate ca; TECHNIQUE: Following the intravenous administration of 6.82 mCi of Ga-68 Illuccix (PSMA), whole bod y images are performed from the skull vertex to the midthigh. Images are reviewed on the computer in the coronal, axial, and sagittal planes. Reconstructed rotating images are created on independent [employer] orkstation and reviewed on the computer. A non-contrast CT is performed in conjunction with the PET scan. CT DLP: 435.57 mGycm, Automated exposure control for dose reduction was used. COMPARISON: CT 08/17/2021, 05/29/2021, 12/26/2020, PET/CT None, MRI: 09/25/2024 FINDINGS: Mediastinal SUV mean is 1.3. Hepatic parenchyma SUV mean is 10.1. SKULL BASE AND NECK: No suspicious radiotracer activity. CHEST, MEDIASTINUM, AND HILAR REGION: No suspicious radiotracer activity. ABDOMEN AND PELVIS: Enlarged prostate gland with central calcifications. There are calcifications within the right semina l vesicle. Focal radiotracer uptake identified within the posterior left peripheral zone of the mid g land extending into the apex. Demonstrates a maximum SUV 30.8. Stable left paravesicular 1.2 cm nodule dating back to 2020. No radiotracer uptake. Consider benign. MUSCULOSKELETAL STRUCTURES: No suspicious radiotracer activity. OTHER CT: Mild atherosclerotic calcification of the aorta and its branches. Mild coronary artery calc ifications. Trace pericardial effusion. Cholelithiasis. Small hiatal hernia. Distal colonic diverticu losis. Left renal cysts measuring up to 3.4 cm. IMPRESSION: Focal radiotracer uptake within the left peripheral zone of the prostate gland corresponding to prior MR prostate. Consistent with known prostate cancer. No other suspicious radiotracer uptake to sugges t metastasis. [facility], , 12/12/2024 7:49 PM
== END | disposition home or self-care (01) ==
LOC: RADPETMAIN 09:22
PROVIDERS: ATTEND Urology
DX: C61 Malignant neoplasm of prostate (principal)
CPT/HCPCS: 78815; A9596